=== PATIENT | male | born 1995 | race Caucasian/White ===

== ENCOUNTER → 2024-12-21 | Outpatient (CLI) | payer MEDICAID, SELFPAY ==
[2024-12-21 11:29] LABS: Absolute Lymphocyte Count 2.21 X10^3/uL (0.83-4.51); Absolute Neutrophil Count 4.1 X10^3/uL (2.0-7.7); Basophil# 0.02 X10^3/uL; Basophil% 0.3 % (0-1); Eosinophil# 0.19 X10^3/uL; Eosinophils% 2.7 % (0-5); Hematocrit 42.8 % (40-54); Lymphocyte # 2.21 X10^3/ul (0.83-4.51); Lymphocyte % 31.4 % (19-41); Mean Corp Hgb Conc 32.7 g/dL (32-36); Mean Corpuscular Hgb 26.5 pg (27.0-32.0); Mean Corpuscular Volume 81.1 fL (80-94); Monocyte% 7.1 % (0-10); NRBC Flagged by Analyzer 0 % (0-5); Neutrophil # 4.09 X10^3/uL (2.7-7.7); Neutrophil % 58.2 % (47-70); Platelet Count 243 K/mm3 (150-450); RBC Distribution Width SD 38.3 fl (35.1-43.9); Red Blood Count 5.28 M/mm3 (4.6-6.2)
[2024-12-21 12:10] LABS: ALB/GLOB Ratio 1.6 RATIO (0.9-2.4); AST(SGOT) 31 U/L (<=37); Alanine Aminotransfer ALT/SGPT 51 U/L (<=46); Albumin, Serum 4.7 g/dL (3.5-5.0); Alkaline Phosphatase 110 U/L (40-129); Amylase 62 U/L (28-100); Anion Gap 12 (5-15); BUN 22 mg/dL (4-19); BUN/Creat Ratio 14.2 RATIO (10-20); Calcium,Total 9.6 mg/dL (7.6-11.0); Carbon Dioxide 24.5 mmol/L (21.0-32.0); Chloride 102 mmol/L (98-108); Creatinine, Serum 1.56 mg/dL (0.70-1.20); EST Glomerular Filtration Rate 61 (>60); Globulin 2.9 g/dL (2.2-4.2); Glucose 99 mg/dL (70-99); Lipase 20 U/L (13-75); Potassium 4.1 mmol/L (3.3-5.1); Protein, Total 7.6 g/dL (5.9-8.4); Sodium Level 139 mmol/L (133-145); Total Bilirubin 0.36 mg/dL (0.00-1.30)
== END | disposition home or self-care (01) ==
PROVIDERS: PCP Nurse Practitioner Family; Referring Provider Nurse Practitioner Family; Visit Provider Nurse Practitioner Family
DX: R10.9 Unspecified abdominal pain (principal)
CPT/HCPCS: 36415; 80053; 82150; 83690; 85025

== ENCOUNTER 2025-01-25 06:57 | Emergency (ER) | payer MEDICAID, SELFPAY ==
[2025-01-25 06:57] VITALS: BP 145/90; PULSE 89; RESP 16; TEMP 36.7; O2SAT 98; BMI 32.0
--- NOTE | 2025-01-25 07:27 | ED.RN ---
Pt rang into the department. Pt escorted back to the room by CALL CENTER COORDINATOR. Staff walking through the hallways and laughing. Pt yelling Be Professional! numerous times. This nurse into triage pt. Pt began to make numerous statements about how people need to be professional, how he needs answers to his issues, how everyone in town knows his name and being very rude to this nurse. This nurse attempted to explain how this nurse has no idea who pt is and all pts are to be treated the same and how pt is to treat staff. Pt explaining to this nurse that he needs answers and does not want an EGD like the gastro doc states he needs. This nurse attempted to explain that the ER is for ruling out major/life threatening issues and that EGDs are not done in the ER. Pt stating numerous times he wants to be treated with respect and people to be honest with him. This nurse explained numerous times that the Doc would be in and would decide what could be done. BerthaRN at bedside during interaction and HRO outside the room.
--- NOTE | 2025-01-25 07:37 | CT_ITS ---
PROCEDURE: ABDOMEN/PELVIS W IV CONT ONLY 01/25/2025 REASON FOR EXAM: DIFFUSE ABD PAIN History of gastroesophageal reflux. TECHNIQUE: ABDOMEN/PELVIS W IV CONT ONLY Coronal and Sagittal reconstruction series were provided. CONTRAST: Isovue-300 VOLUME: 100 mL One or more dose reduction techniques were used (e.g., Automated exposure control, adjustment of the mA and/or kV according to patient size, use of iterative reconstruction technique. RADIATION DOSE SUMMARY: CTDlvol: 15.8 mGy DLP: 1063.79 mGycm COMPARISON: None FINDINGS: Lung bases: Lung bases are clear. No coronary artery calcification. Liver: Normal size. No mass. Gallbladder: Unremarkable Spleen: Normal size. Pancreas: Normal size without evidence of mass surrounding inflammation or ductal dilation. Adrenals: Unremarkable Kidneys: Normal renal sizes. No hydronephrosis. Bladder: Unremarkable Bowel: Unremarkable Appendix: Unremarkable Lymph nodes: Unremarkable Vasculature: Unremarkable Peritoneum / Retroperitoneum: Small bilateral inguinal hernias containing fat slightly more prominent on the right side. Bones: Unremarkable CT/Abdomen/Pelvis W IV Cont ONLY IMPRESSION: UNREMARKABLE CONTRAST-ENHANCED CT OF THE ABDOMEN AND PELVIS Reading Location: [id number]
--- NOTE | 2025-01-25 07:37 | ED.VIS.GI ---
HPI HPI - GI History of Present Illness Chief Complaint: Abd Pain Informant: patient Narrative Narrative: 29-year-old male frustrated about abdominal pain that is periumbilical/epigastric and has been there for a while. He saw GI about this he has been on the PPI, certain foods especially sauces make it worse. Now he is getting bloated. He has small loose stools often. He denies any blood in the stool or melena. He has had no systemic symptoms such as fevers or lightheadedness or weakness. He has had no nausea or vomiting. GI recommended an EGD but he states he has a fear of being put to sleep so he declined. [facility] Medical History GERD (gastroesophageal reflux disease) Home Medications ?Medication ?Instructions ?Recorded ?Last Taken ?Type omeprazole 40 mg capsule,delayed 40 mg PO BID #90 caps 12/27/24 Unknown Rx release sucralfate 1 gram tablet 1 g PO QAC 12/27/24 Unknown History dicyclomine 20 mg tablet 20 mg PO Q6H PRN PRN abdominal 01/25/25 Unknown Rx discomfort #20 tabs Allergy/AdvReac Type Severity Reaction Status Date / Time No Known Allergies Allergy Verified 01/25/25 07:50 Social History Smoking Status: Former smoker ROS ROS ED Constitutional Constitutional ED: Denies chills or fever(s) Eyes Eyes: Denies change in vision or diplopia ENT ENT ED: Denies rhinorrhea or sore throat Cardiovascular Cardiovascular: Denies chest pain or palpitations Respiratory/Chest Respiratory/Chest: Denies cough or dyspnea Gastrointestinal Gastrointestinal: Reports abdominal pain, bloating and diarrhea; Denies melena, nausea or vomiting Genitourinary Genitourinary ED: Denies dysuria or hematuria Musculoskeletal Musculoskeletal: Denies back pain or neck pain Integumentary Denies abscess or rash Neurologic Neurologic: Denies headache(s), paresthesias or weakness Psychiatric Psychiatric: Denies anxiety or suicidal thoughts EXAM Physical Exam Const Vital Signs: 01/25/25 06:57 Temperature 98.1 F Temperature Source Oral Pulse Rate 89 Respiratory Rate 16 Blood Pressure 145/90 H Blood Pressure Mean 108 Pulse Ox 98 Oxygen Delivery Method Room Air Positive well nourished and well developed General Appearance ED: well developed and NAD HEENT Reports moist mucous membranes normocephalic and atraumatic Eyes PERRL and EOMs intact bilaterally Neck full ROM and supple Resp normal respiratory effort and clear to auscultation bilaterally Cardio regular rate, regular rhythm and no murmurs GI non-tender and non-distended Auscultation: normoactive bowel sounds Palpation: soft Back/Spine no CVA tenderness General Back: other FROM Extremity normal to inspection General Extremety ED: Negative for edema, pulses abnormal or tenderness General Extremity: Negative for edema or pulses abnormal Neuro oriented x3, CN's II-XII intact bilaterally and no sensory deficits noted Sensorium / Orientation: awake and alert Motor Exam: strength 5/5 throughout Skin no rashes or lesions noted and no wounds MDM MDM MDM Narrative Medical decision making narrative: Labs were performed in addition to CT abdomen/pelvis with IV contrast. On my interpretation the CT is normal, radiology was in agreement no acute abnormalities. His labs are normal with no leukocytosis. As I discussed with the patient, this does not mean nothing is wrong, but he could have an intraluminal or a functional etiology of his discomfort and bloating, and if GI thought an EGD was indicated, I recommend that he follow-up with them and reconsider. We did discuss the fact that deep sedation in the OR is different than light sedation for endoscopy and he did not realize that. He was given GI cocktail and dicyclomine here and he states that it really helps him going to prescribe him some dicyclomine to use as needed. We discussed possibilities such as H. pylori/peptic ulcer disease, celiac disease, irritable bowel syndrome, leaky gut syndrome to name a few possibilities. History & Record Review Additional record(s) reviewed:: Prior outpatient record (GI visit end of Nov, 2024) Lab Data Attestation: I reviewed the patient's lab results. Labs: Laboratory Results - last 24 hr 01/25/25 07:52 WBC 7.3 RBC 5.15 Hgb 13.6 Hct 40.4 MCV 78.4 L MCH 26.4 L MCHC 33.7 RDW Std Deviation 37.1 RDW Coeff of Aimee 13.0 Plt Count 213 MPV 9.8 Immature Gran % (Auto) 0.300 Neut % (Auto) 60.6 Lymph % (Auto) 28.9 [place] % (Auto) 6.8 Eos % (Auto) 3.1 Baso % (Auto) 0.3 Absolute Neuts (auto) 4.5 Absolute Lymphs (auto) 2.12 Nucleated RBC % 0 Sodium 137 Potassium 3.8 Chloride 101 Carbon Dioxide 23.7 Anion Gap 12 BUN 20 H Creatinine 0.82 Estim Creat Clear Calc 130.48 Est GFR (MDRD) Non-Af 122 BUN/Creatinine Ratio 24.8 H Glucose 95 Calcium 9.8 Total Bilirubin 0.44 AST 25 ALT 35 Alkaline Phosphatase 108 Total Protein 7.3 Albumin 4.5 Globulin 2.8 Albumin/Globulin Ratio 1.6 Lipase 21 Radiography Diagnostic Testing: Clinical Impression(s) from Imaging Studies Abdomen/Pelvis CT 01/25/25 07:37 IMPRESSION: UNREMARKABLE CONTRAST-ENHANCED CT OF THE ABDOMEN AND PELVIS Reading Location: [facility] Discharge Plan Triage Chief Complaint: Abd Pain ED Provider: Guillermo Morgan Dx/Rx/DC Orders Clinical Impression: Diffuse abdominal pain, Intermittent diarrhea, Abdominal bloating Instructions: Abdominal Pain Prescriptions: New dicyclomine 20 mg tablet 20 mg PO Q6H PRN PRN (Reason: abdominal discomfort) Qty: 20 0RF Continued sucralfate 1 gram tablet 1 g PO QAC omeprazole 40 mg capsule,delayed release(DR/EC) 40 mg PO BID Qty: 90 2RF Discontinued pantoprazole 20 mg tablet,delayed release (DR/EC) 20 mg PO QDAY Primary Care Provider: Alecia Sol Referrals: Nalini Del Rio PA [Med Staff - Adv Practice Prof] - Print Language: Korean Disposition Disposition: Home, Self Care
--- OUTSIDE RECORDS SUMMARY | 2025-01-25 07:47 | XMS RPT_ITS | CCD ---
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 mcg/mL (12 hours post dose) Result Comment: Urin e Buprenorphine Cutoff: < 5 ng/mL = None Detected Performed By: #### 4 5014 #### [facility] [address] [id number] Wilbert Johnson M.D. [id number] CANNABINOID SCREEN URINE Not detected Normal Non e Detected [facility] Comment on above: Order Comment: Thera peutic Range: 10-30 mcg/mL Potentially Toxic: >200 mcg/mL (4 hours post dose) >100 mcg/mL (8 hours post dose) >50 mcg/mL (12 hours post dose) Result Comment: Urin e Cannabinoids Cutoff: < 50 ng/mL = None Detected Performed By: #### 4 5014 #### [facility] [address] [id number] Wilbert Johnson M.D. [id number] COCAINE, SCREEN URINE Not detected Normal None Detected [facility] Comment on above: Order Comment: Thera peutic Range: 10-30 mcg/mL Potentially Toxic: >200 mcg/mL (4 hours post dose) >100 mcg/mL (8 hours post dose) >50 mcg/mL (12 hours post dose) Result Comment: Urin e Cocaine Cutoff: < 300 ng/mL = None Detected Performed By: #### 4 5014 #### [facility] [address] [address] Wilbert Johnson M.D. [id number] FENTANYL, URINE Not detected Normal None Detected [facility] Comment on above: Order Comment: Thera peutic Range: 10-30 mcg/mL Potentially Toxic: >200 mcg/mL (4 hours post dose) >100 mcg/mL (8 hours post dose) >50 mcg/mL (12 hours post dose) Result Comment: Urin e Fentanyl Cutoff: < 1 ng/mL = None Detected Performed By: #### 4 5014 #### [facility] [address] [address] Wilbert Johnson M.D. [id number] METHADONE SCREEN, URINE Not detected Normal None Detected [facility] Comment on above: Order Comment: Thera peutic Range: 10-30 mcg/mL Potentially Toxic: >200 mcg/mL (4 hours post dose) >100 mcg/mL (8 hours post dose) >50 mcg/mL (12 hours post dose) Result Comment: Urin e Methadone Cutoff: < 300 ng/mL = None Detected Performed By: #### 4 5014 #### [facility] [address] [address] Wilbert Johnson M.D. [id number] OPIATE SCREEN URINE Not detected Normal None Detected [facility] Comment on above: Order Comment: Thera peutic Range: 10-30 mcg/mL Potentially Toxic: >200 mcg/mL (4 hours post dose) >100 mcg/mL (8 hours post dose) >50 mcg/mL (12 hours post dose) Result Comment: Urin e Opiates Cutoff: < 300 ng/mL = None Detected Performed By: #### 4 5014 #### [facility] [address] [id number] Wilbert Johnson M.D. [id number] OXYCODONE SCREEN, URINE Not detected Normal None Detected [facility] Comment on above: Order Comment: Thera peutic Range: 10-30 mcg/mL Potentially Toxic: >200 mcg/mL (4 hours post dose) >100 mcg/mL (8 hours post dose) >50 mcg/mL (12 hours post dose) Result Comment: Urin e Oxycodone Cutoff: < 100 ng/mL = None Detected Performed By: #### 4 5014 #### [facility] [address], [place] [address] Wilbert Johnson M.D. [id number] ED Prov Noteon 08-31-2024 ED Prov Note ED PROVIDER NOTE [facility] EMERGENCY DEPARTMENT Patient Name: Cory Shelley Age: 28 y.o. : 1995 ED Visit Date : 08/31/24 Chief Complaint Patient presents with Suicidal HPI/MDM: Patient is a 28-year-old male with history of depression and PTSD presenting for suicidal ideation. Patient states today he started feeling suicidal with plan of taking all of his pills. He states he has only taking his recommended pills today and has not taken anything extra. He states he is also staying outside and sleeping on the ground. He denies any HI, AVH, alcohol or drug use. On exam, he is alert and oriented, disheveled and visibly dirty but cooperative with exam. Vital signs are stable. He denies any physical complaints at this time. He was placed on a medical hold for suicidal ideation and PSS was consulted. Disposition pending their evaluation. Impressions: 1. Suicidal ideation MDM Data Previous Records Reviewed The patient has been informed that they may have pre-hypertension or hypertension based on a blood pressure reading in the Emergency Department. I recommend that the patient call the primary care provider listed on their discharge instructions or a physician of their choice as soon as possible to arrange follow-up in the next 4 weeks for further evaluation of possible pre-hypertension or hypertension. . Labs Reviewed URINALYSIS - Abnormal; Notable for the following components: Result Value Ketones, Urine >=80 (*) Bacteria, Urine Rare (*) Hyaline Casts 3-5 (*) All other components within normal limits Narrative: Microscopic examination is performed on all urinalysis samples and only positive findings are reported. The test for blood on the chemical analytic portion of urinalysis may also be positive due to hemoglobinuria and myoglobinuria and if red blood cells are present they are quantified by microscopic examination. ALCOHOL, MEDICAL - Normal SALICYLATE LEVEL - Normal Narrative: Therapeutic Range: 10-20 mg/dL Potentially Toxic: >30 mg/dL ACETAMINOPHEN LEVEL - Normal Narrative: Therapeutic Range: 10-30 mcg/mL Potentially Toxic: >200 mcg/mL (4 hours post dose) >100 mcg/mL (8 hours post dose) >50 mcg/mL (12 hours post dose) DRUGS OF ABUSE SCREEN, URINE Radiographic Imaging (if any) During ED Visit No orders to display Medications Ordered/Given During ED Visit Medications - No data to display I saw and evaluated the patient. I have reviewed the chief complaint, triage note, past medical/surgical, family, and social history. END OF MEDICAL DECISION MAKING Physical Exam Initial Vital Signs BP (!) 148/92 (BP Location: Right arm, Patient Position: Sitting) Pulse (!) 114 Temp 99.4 degrees F (37.4 degrees C) (Oral) Resp 17 Ht 5' 4 Wt 68 kg (150 lb) SpO2 98% BMI 25.75 kg/m Vital Signs During ED Visit (as charted by nursing) Patient Vitals for the past 24 hrs: BP Temp Temp src Pulse Resp SpO2 Height Weight 08/31/24 2209 (!) 148/92 99.4 degrees F (37.4 degrees C) Oral (!) 114 17 98 % -- -- 08/31/24 1932 (!) 139/96 98.1 degrees F (36.7 degrees C) Oral (!) 100 (!) 20 99 % 5' 4 68 kg (150 lb) Physical Exam Constitutional: General: He is not in acute distress. Appearance: He is not ill-appearing or diaphoretic. HENT: Head: Normocephalic and atraumatic. Nose: Nose normal. Mouth/Throat: Mouth: Mucous membranes are moist. Eyes: Extraocular Movements: Extraocular movements intact. Conjunctiva/sclera: Conjunctivae normal. Cardiovascular: Rate and Rhythm: Normal rate. Pulses: Normal pulses. Musculoskeletal: General: Normal range of motion. Cervical back: Normal range of motion. Right lower leg: No edema. Left lower leg: No edema. Pulmonary: Effort: Pulmonary effort is normal. No respiratory distress. Abdominal: General: Abdomen is flat. Skin: General: Skin is warm and dry. Neurological: General: No focal deficit present. Mental Status: He is alert and oriented to person, place, and time. Sensory: No sensory deficit. Motor: No weakness. Psychiatric: Mood and Affect: Mood normal. Behavior: Behavior normal. Procedures Review of Systems As described above or not pertinent to present emergent encounter. All other systems reviewed and negative. Past Medical History Past Medical History: Diagnosis Date Depression Past Surgical History History reviewed. No pertinent surgical history. Family History History reviewed. No pertinent family history. Social History Social History Socioeconomic History Marital status: Single Tobacco Use Smoking status: Some Days Types: Cigarettes Smokeless tobacco: Never Vaping Use Vaping status: Never Used Substance and Sexual Activity Alcohol use: Yes Comment: occasionally Drug use: Yes Types: Marijuana Comment: occasionally Anthony (more content not included)... Normal [facility] SALICYLATE LEVELon SALICYLATE < Normal 0.0-20.0 [facility] Comment on above: Order Comment: Thera peutic Range: 10-20 mg/dL Potentially Toxic: >30 mg/dL Performed By: #### 4 [id number] #### [facility] [address], [place] [address] Wilbert Johnson M.D. [id number] URINALYSISon 08-31-2024 BACTERIA, URINE Rare Abnormal None Seen [facility] Comment on above: Order Comment: Thera peutic Range: 10-30 mcg/mL Potentially Toxic: >200 mcg/mL (4 hours post dose) >100 mcg/mL (8 hours post dose) >50 mcg/mL (12 hours post dose) Performed By: #### 4 5014 #### [facility] [address], [place] [address] Wilbert Johnson M.D. [id number] BILIRUBIN, URINE Negative Normal Negative [facility] Comment on above: Order Comment: Thera peutic Range: 10-30 mcg/mL Potentially Toxic: >200 mcg/mL (4 hours post dose) >100 mcg/mL (8 hours post dose) >50 mcg/mL (12 hours post dose) Performed By: #### 4 5014 #### [facility] [address] [address] Wilbert Johnson M.D. [id number] BLOOD, URINE Negative Normal Negative [facility] Comment on above: Order Comment: Thera peutic Range: 10-30 mcg/mL Potentially Toxic: >200 mcg/mL (4 hours post dose) >100 mcg/mL (8 hours post dose) >50 mcg/mL (12 hours post dose) Performed By: #### 4 5014 #### [facility] [address] [address] Wilbert Johnson M.D. [id number] Clarity (U) Clear Normal Clear [facility] Comment on above: Order Comment: Thera peutic Range: 10-30 mcg/mL Potentially Toxic: >200 mcg/mL (4 hours post dose) >100 mcg/mL (8 hours post dose) >50 mcg/mL (12 hours post dose) Performed By: #### 4 5014 #### [facility] [address] [address] Wilbert Johnson M.D. [id number] Color (U) Yellow Normal Colorless, Yellow [facility] Comment on above: Order Comment: Thera peutic Range: 10-30 mcg/mL Potentially Toxic: >200 mcg/mL (4 hours post dose) >100 mcg/mL (8 hours post dose) >50 mcg/mL (12 hours post dose) Performed By: #### 4 5014 #### [facility] [address] [address] Wilbert Johnson M.D. [id number] Glucose Ql (U) Negative Normal Negative, >=1000 [facility] Comment on above: Order Comment: Thera peutic Range: 10-30 mcg/mL Potentially Toxic: >200 mcg/mL (4 hours post dose) >100 mcg/mL (8 hours post dose) >50 mcg/mL (12 hours post dose) Performed By: #### 4 5014 #### [facility] [address], [place] [address] Wilbert Johnson M.D. [id number] Hyaline casts LM Ql (Urine sed) 3-5 Abnormal 0-2 [facility] Comment on above: Order Comment: Thera peutic Range: 10-30 mcg/mL Potentially Toxic: >200 mcg/mL (4 hours post dose) >100 mcg/mL (8 hours post dose) >50 mcg/mL (12 hours post dose) Performed By: #### 4 5014 #### [facility] [address] [id number] Wilbert Johnson M.D. [id number] Ketones Ql (U) >=80 Abnormal Negative [facility] Comment on above: Order Comment: Thera peutic Range: 10-30 mcg/mL Potentially Toxic: >200 mcg/mL (4 hours post dose) >100 mcg/mL (8 hours post dose) >50 mcg/mL (12 hours post dose) Performed By: #### 4 5014 #### [facility] [address] [id number] Wilbert Johnson M.D. [id number] Leukocyte esterase Test strip Ql (U) Negative Normal Negative [facility] Comment on above: Order Comment: Thera peutic Range: 10-30 mcg/mL Potentially Toxic: >200 mcg/mL (4 hours post dose) >100 mcg/mL (8 hours post dose) >50 mcg/mL (12 hours post dose) Performed By: #### 4 5014 #### [facility] [address] [id number] Wilbert Johnson M.D. [id number] MUCUS, URINE Rare Normal None Seen, [place] [facility] Comment on above: Order Comment: Thera peutic Range: 10-30 mcg/mL Potentially Toxic: >200 mcg/mL (4 hours post dose) >100 mcg/mL (8 hours post dose) >50 mcg/mL (12 hours post dose) Performed By: #### 4 [id number] #### [facility] [address] [id number] Wilbert Johnson M.D. [id number] NITRITE, URINE Negative Normal Negative [facility] Comment on above: Order Comment: Thera peutic Range: 10-30 mcg/mL Potentially Toxic: >200 mcg/mL (4 hours post dose) >100 mcg/mL (8 hours post dose) >50 mcg/mL (12 hours post dose) Performed By: #### 4 [id number] #### [facility] [address], [place] [address] Wilbert Johnson M.D. [id number] pH (U) 5.5 [pH] Normal 5.0-7.0 [facility] Comment on above: Order Comment: Thera peutic Range: 10-30 mcg/mL Potentially Toxic: >200 mcg/mL (4 hours post dose) >100 mcg/mL (8 hours post dose) >50 mcg/mL (12 hours post dose) Performed By: #### 4 [id number] #### [facility] [address] [id number] Wilbert Johnson M.D. [id number] PROTEIN, URINE Negative Normal Negative [facility] Comment on above: Order Comment: Thera peutic Range: 10-30 mcg/mL Potentially Toxic: >200 mcg/mL (4 hours post dose) >100 mcg/mL (8 hours post dose) >50 mcg/mL (12 hours post dose) Performed By: #### 4 [id number] #### [facility] [address], [place] [address] Wilbert Johnson M.D. [id number] RBC LM.HPF (Urine sed) [#/Area] 1 /[HPF] Normal 0-3 [facility] Comment on above: Order Comment: Thera peutic Range: 10-30 mcg/mL Potentially Toxic: >200 mcg/mL (4 hours post dose) >100 mcg/mL (8 hours post dose) >50 mcg/mL (12 hours post dose) Performed By: #### 4 [id number] #### [facility] [address], [place] [address] Wilbert Johnson M.D. [id number] Specific gravity (U) [Rel density] 1.023 Normal 1.005-1.025 [facility] Comment on above: Order Comment: Thera peutic Range: 10-30 mcg/mL Potentially Toxic: >200 mcg/mL (4 hours post dose) >100 mcg/mL (8 hours post dose) >50 mcg/mL (12 hours post dose) Performed By: #### 4 [id number] #### [facility] [address], [place] [address] Wilbert Johnson M.D. [id number] UROBILINOGEN, URINE <2.0 Normal <2.0 [facility] Comment on above: Order Comment: Thera peutic Range: 10-30 mcg/mL Potentially Toxic: >200 mcg/mL (4 hours post dose) >100 mcg/mL (8 hours post dose) >50 mcg/mL (12 hours post dose) Performed By: #### 4 [id number] #### [facility] [address], [place] [address] Wilbert Johnson M.D. [id number] WBC LM.HPF (Urine sed) [#/Area] 2 /[HPF] Normal 0-5 [facility] Comment on above: Order Comment: Thera peutic Range: 10-30 mcg/mL Potentially Toxic: >200 mcg/mL (4 hours post dose) >100 mcg/mL (8 hours post dose) >50 mcg/mL (12 hours post dose) Performed By: #### 4 [id number] #### [facility] [address], [place] [address] Wilbert Johnson M.D. [id number] ALCOHOL (ETHANOL),BLOODon Ethanol Ql (Bld) mg/dL NINF - 10 mg/dL [facility] Interpretation and review of laboratory results Normal [facility] Alcohol, Serum <10 Normal <[address] [facility] Comment on above: Performed By: #### A LCOSU #### [facility] (DEFAULT) [address] [place] [address] CALCIUMon 08-19-2024 Calcium [Mass/Vol] 9.3 mg/dL 8.6 - 10. 5 mg/dL [facility] CBC,PLATELETSon 08-19-2024 Erythrocyte distribution width (RBC) [Ratio] 13.2 % 10.9 - 14.3 % [facility] Hematocrit (Bld) [Volume fraction] 42.2 % 39.6 - 48.8 % [facility] Hemoglobin (Bld) [Mass/Vol] 14.4 g/dL 13.4 - 16.8 g/dL [facility] Interpretation and review of laboratory results Abnormal [facility] MCH (RBC) [Entitic mass] 26.9 pg 26. 1 - 33.3 pg [facility] MCHC (RBC) [Mass/Vol] 34.1 g/dL 31.9 - 36.5 g/dL [facility] MCV (RBC) [Entitic vol] 78.7 fL Low 79.0 - 94.5 fL [facility] Platelet mean volume (Bld) [Entitic vol] 10.5 fL 8.7 - 12.3 fL [facility] Platelets (Bld) [#/Vol] 159 10*3/uL 146 - 337 K/uL [facility] RBC (Bld) [#/Vol] 5.36 10*6/uL [facility] WBC (Bld) [#/Vol] 6.75 10*3/uL 3.73 - 10. 10 K/uL [facility] 7 - EDon 08-19-2024 Anion gap [Moles/Vol] 12 mmol/L 7 - 17 mmol/L [facility] Chloride [Moles/Vol] 103 mmol/L 98 - 10 8 mmol/L [facility] CO2 [Moles/Vol] 28 mmol/L 21 - 31 mmol/L [facility] Creatinine [Mass/Vol] 0.95 mg/dL 0.70 - 1.30 mg/dL [facility] eGFR, CKD-EPI, Male - PINF [facility] Comment on above: Reported eGFR is bas ed on the CKD-EPI 2020 equation using creatinine, age, and sex. Glucose [Mass/Vol] 96 mg/dL 70 - 99 mg/dL [facility] Osmolality Calc [Osmolality] 292 [facility] Potassium [Moles/Vol] 4.2 mmol/L 3.5 - 5.0 mmol/L [facility] Sodium [Moles/Vol] 139 mmol/L 135 - 145 mmol/L [facility] Urea nitrogen [Mass/Vol] 16 mg/dL 7 - 25 mg/d L [facility] Urea nitrogen/Creatinine [Mass ratio] 17 mg/mg [facility] HEPATIC FUNCTION PANELon Albumin [Mass/Vol] 4.6 g/dL 3.5 - 5.0 g/dL [facility] ALP [Catalytic activity/Vol] 104 U/L 32 - 126 U/L [facility] ALT [Catalytic activity/Vol] 25 U/L 10 - 52 U/L [facility] AST [Catalytic activity/Vol] 19 U/L 10 - 39 U/L [facility] Bilirubin [Mass/Vol] 0.5 mg/dL NINF - 1.5 mg/dL [facility] Bilirubin.direct [Mass/Vol] 0.1 mg/dL NINF - 0.3 mg/dL [facility] Protein [Mass/Vol] 7.3 g/dL 6.4 - 8.3 g/dL [facility] LIPASEon 08-19-2024 Lipase [Catalytic activity/Vol] 11 U/L 11 - 82 U/L [facility] MAGNESIUMon 08-19-2024 Magnesium [Mass/Vol] 2.4 mg/dL 1.6 - 2 .6 mg/dL [facility] No Panel Informationon 08-19 [facility] Interpretation and review of laboratory results Normal [facility] PHOSPHATE, INORGANICon 08-19 Interpretation and review of laboratory results Abnormal [facility] Phosphate [Mass/Vol] 5.1 mg/dL High 2.2 - 4 .6 mg/dL [facility] CALCIUMon 08-18-2024 Calcium [Mass/Vol] 9.3 mg/dL Normal 8.6-10.5 [facility] Comment on above: Performed By: #### L IPA, IPB, MGO, HFP, CA, C7ED #### [facility] (DEFAULT) [address] [place] [id number] CBC,PLATELETSon 08-18-2024 Hematocrit (Bld) [Volume fraction] 42.2 % Normal 39.6-48.[address] [facility] Comment on above: Performed By: #### H EMOGC #### [facility] (DEFAULT) [address] [place] [address] Hemoglobin (Bld) [Mass/Vol] 14.4 g/dL Normal 13.4-16.[address] [facility] Comment on above: Performed By: #### H EMOGC #### [facility] (DEFAULT) [address] [place] [address] MCV (RBC) [Entitic vol] 78.7 fL Low 79.0-94.[address] [facility] Comment on above: Performed By: #### H EMOGC #### [facility] (DEFAULT) [address] [place] [address]97 Mean Cell Hgb 26.9 pg Normal 26.1-33.[address] [facility] Comment on above: Performed By: #### H EMOGC #### [facility] (DEFAULT) [address] [place] [address] 75872 Mean Cell Hgb Conc 34.1 g/dL Normal 31.9-36.5 [facility] Comment on above: Performed By: #### H EMOGC #### [facility] (DEFAULT) [address] [place] [address] Platelet mean volume (Bld) [Entitic vol] 10.5 fL Normal 8.7-12.[address] [facility] Comment on above: Performed By: #### H EMOGC #### [facility] (DEFAULT) [address] [place] [address] Platelets (Bld) [#/Vol] 159 10*3/uL Normal 146-[address] [facility] Comment on above: Performed By: #### H EMOGC #### [facility] (DEFAULT) [address] [place] [address] RBC (Bld) [#/Vol] 5.36 10*6/uL Normal 4.38-5.[address] [facility] Comment on above: Performed By: #### H EMOGC #### [facility] (DEFAULT) [address] [place] [address] RBC Distribution 13.2 % Normal 10.9-14.3 [facility] Comment on above: Performed By: #### H EMOGC #### [facility] (DEFAULT) [address] [place] [address] WBC (Bld) [#/Vol] 6.75 10*3/uL Normal 3.73-10.[address] [facility] Comment on above: Performed By: #### H EMOGC #### [facility] (DEFAULT) [address] [place] [address] CHM 7 - EDon 08-18-2024 Anion gap [Moles/Vol] 12 mmol/L Normal 7-17 [facility] Comment on above: Performed By: #### C HM7, HFP, HDLT #### [facility] (DEFAULT) [address] [place] [address] Chloride [Moles/Vol] 103 mmol/L Normal 98-[address] [facility] Comment on above: Performed By: #### C HM7, HFP, HDLT #### [facility] (DEFAULT) [address] [place] [address] CO2 [Moles/Vol] 28 mmol/L Normal 21-31 [facility] Comment on above: Performed By: #### C HM7, HFP, HDLT #### [facility] (DEFAULT) [address] [place] [address] Creatinine [Mass/Vol] 0.95 mg/dL Normal 0.70-1.30 [facility] Comment on above: Performed By: #### C HM7, HFP, HDLT #### [facility] (DEFAULT) [address] [place] [address] eGFR, CKD-EPI, Male > Normal >=[address] [facility] Comment on above: Result Comment: Repo rted eGFR is based on the CKD-EPI 2020 equation using creatinine, age, and sex. Performed By: #### C HM7, HFP, HDLT #### [facility] (DEFAULT) [address] [place] [address]24 Glucose [Mass/Vol] 96 mg/dL Normal 70-99 [facility] Comment on above: Performed By: #### C HM7, HFP, HDLT #### [facility] (DEFAULT) [address] [place] [address] Osmolality [Osmolality] 292 mosm/kg Normal 278-[address] [facility] Comment on above: Performed By: #### C HM7, HFP, HDLT #### [facility] (DEFAULT) [address] [place] [address]706 Potassium [Moles/Vol] 4.2 mmol/L Normal 3.5-5.0 [facility] Comment on above: Performed By: #### C HM7, HFP, HDLT #### [facility] (DEFAULT) [address] [place] [address] 09755 Sodium [Moles/Vol] 139 mmol/L Normal 135-145 [facility] Comment on above: Performed By: #### C HM7, HFP, HDLT #### [facility] (DEFAULT) [address] [place] [address]1417 Urea nitrogen [Mass/Vol] 16 mg/dL Normal 7-[address] [facility] Comment on above: Performed By: #### C HM7, HFP, HDLT #### [facility] (DEFAULT) [address] [place] [address] Urea nitrogen/Creatinine [Mass ratio] 17 mg/mg Normal [facility] Comment on above: Performed By: #### C HM7, HFP, HDLT #### [facility] (DEFAULT) [address] [place] [address]951 HEPATIC FUNCTION PANELon Albumin [Mass/Vol] 4.6 g/dL Normal 3.5-5.0 [facility] Comment on above: Performed By: #### C HM7, HFP, HDLT #### [facility] (DEFAULT) [address] [place] [address]3083 ALP [Catalytic activity/Vol] 104 U/L Normal 32-[address] [facility] Comment on above: Performed By: #### C HM7, HFP, HDLT #### [facility] (DEFAULT) [address] [place] [address] 70777 ALT [Catalytic activity/Vol] 25 U/L Normal 10-[address] [facility] Comment on above: Performed By: #### C HM7, HFP, HDLT #### [facility] (DEFAULT) [address] [place] [address] 20125 AST [Catalytic activity/Vol] 19 U/L Normal 10-[address] [facility] Comment on above: Performed By: #### C HM7, HFP, HDLT #### [facility] (DEFAULT) [address] [place] [address] 44906 Bilirubin [Mass/Vol] 0.5 mg/dL Normal <1.[address] [facility] Comment on above: Performed By: #### C HM7, HFP, HDLT #### [facility] (DEFAULT) [address] [place] [address] 12037 Bilirubin.indirect [Mass/Vol] 0.1 mg/dL Normal <0.[address] [facility] Comment on above: Performed By: #### C HM7, HFP, HDLT #### [facility] (DEFAULT) [address] [place] [address] 06707 Protein [Mass/Vol] 7.3 g/dL Normal 6.4-8.3 [facility] Comment on above: Performed By: #### C HM7, HFP, HDLT #### [facility] (DEFAULT) [address] [place] [address] 87883 LIPASEon 08-18-2024 Lipase [Catalytic activity/Vol] 11 U/L Normal 11-[address] [facility] Comment on above: Performed By: #### L IPA, IPB, MGO, HFP, CA, C7ED #### [facility] (DEFAULT) [address] [place] [address] 85307 MAGNESIUMon 08-18-2024 Magnesium [Mass/Vol] 2.4 mg/dL Normal 1.6-2.[address] [facility] Comment on above: Performed By: #### L IPA, IPB, MGO, HFP, CA, C7ED #### [facility] (DEFAULT) [address] [place] [address] 90022 PHOSPHATE, INORGANICon 08-18 Phosphorous 5.1 mg/dL High 2.2-4.[address] [facility] Comment on above: Performed By: #### C HM7, HFP, HDLT #### [facility] (DEFAULT) [address] [place] [address] 10508 ALCOHOL, MEDICALon ALCOHOL MEDICAL < Normal <10.0 [facility] Comment on above: Result Comment: Alco hol cutoff: <10.00 mg/dL = None Detected Performed By: #### 4 [id number] #### [facility] [address] [address] Wilbert Johnson M.D. [id number] COVID-19, MOLECULARon 2023 SARS-CoV-2 (COVID-19) RNA CLAUDIA+probe Ql (Unsp spec) Not detected Normal Not Detected [facility] Comment on above: Performed By: #### L [id number] #### [facility] [address], [place] [address] Wilbert Johnson M.D. [id number] DRUGS OF ABUSE SCREEN, URINE on 06-06-2024 AMPHETAMINE SCREEN, URINE Not detected Normal None Detected [facility] Comment on above: Order Comment: Scree n results should be used for treatment purposes only. Result Comment: Urin e Amphetamine Cutoff: < 1000 ng/mL = None Detected Performed By: #### 4 [id number] #### [facility] [address] [address] Wilbert Johnson M.D. [id number] BARBITURATE SCREEN URINE Not detected Normal Non e Detected [facility] Comment on above: Order Comment: Scree n results should be used for treatment purposes only. Result Comment: Urin e Barbiturates Cutoff: < 200 ng/mL = None Detected Performed By: #### 4 [id number] #### [facility] [address] [address] Wilbert Johnson M.D. [id number] BENZODIAZEPINE SCREEN, URINE Not detected Normal None Detected [facility] Comment on above: Order Comment: Scree n results should be used for treatment purposes only. Result Comment: Urin e Benzodiazepine Cutoff: < 200 ng/mL = None Detected Performed By: #### 4 [id number] #### [facility] [address] [address] Wilbert Johnson M.D. [id number] BUPRENORPHINE, URINE Not detected Normal None Detected [facility] Comment on above: Order Comment: Scree n results should be used for treatment purposes only. Result Comment: Urin e Buprenorphine Cutoff: < 5 ng/mL = None Detected Performed By: #### 4 [id number] #### [facility] [address] [address] Wilbert Johnson M.D. [id number] CANNABINOID SCREEN URINE Not detected Normal Non e Detected [facility] Comment on above: Order Comment: Scree n results should be used for treatment purposes only. Result Comment: Urin e Cannabinoids Cutoff: < 50 ng/mL = None Detected Performed By: #### 4 [id number] #### [facility] [address] [address] Wilbert Johnson M.D. [id number] COCAINE, SCREEN URINE Not detected Normal None Detected [facility] Comment on above: Order Comment: Scree n results should be used for treatment purposes only. Result Comment: Urin e Cocaine Cutoff: < 300 ng/mL = None Detected Performed By: #### 4 [id number] #### [facility] [address] [address] Wilbert Johnson M.D. [id number] FENTANYL, URINE Not detected Normal None Detected [facility] Comment on above: Order Comment: Scree n results should be used for treatment purposes only. Result Comment: Urin e Fentanyl Cutoff: < 1 ng/mL = None Detected Performed By: #### 4 [id number] #### [facility] [address] [address] Wilbert Johnson M.D. [id number] METHADONE SCREEN, URINE Not detected Normal None Detected [facility] Comment on above: Order Comment: Scree n results should be used for treatment purposes only. Result Comment: Urin e Methadone Cutoff: < 300 ng/mL = None Detected Performed By: #### 4 [id number] #### [facility] [address] [address] Wilbert Johnson M.D. [id number] OPIATE SCREEN URINE Not detected Normal None Detected [facility] Comment on above: Order Comment: Scree n results should be used for treatment purposes only. Result Comment: Urin e Opiates Cutoff: < 300 ng/mL = None Detected Performed By: #### 4 [id number] #### [facility] [address] [id number] Wilbert Johnson M.D. [id number] OXYCODONE SCREEN, URINE Not detected Normal None Detected [facility] Comment on above: Order Comment: Scree n results should be used for treatment purposes only. Result Comment: Urin e Oxycodone Cutoff: < 100 ng/mL = None Detected Performed By: #### 4 [id number] #### [facility] [address] [address] Wilbert Johnson M.D. [id number] ED Prov Noteon 06-06-2024 ED Prov Note T11 :This report has been cancelled. Normal [facility] ED Prov Note PCP - No, Physician Chief Complaint Patient presents with Suicidal HPI/ Medical Decision Making Patient is a 28-year-old male who presents today for suicidal ideation. Patient has history of depression anxiety. Patient states that he has had suicidal ideation that started today. Patient states that he recently lost his job which also resulted in him losing his apartment. Patient states that he does have a plan in which she would strangle himself with his backpack. Patient does note history of cutting. States that he drank about 5 beers last night. Denies any daily alcohol use but does note that he drinks about 1-2 times a week in which she is drinking between 9 PM and 3 AM in which he is binge drinking. Patient denies any daily medications for his depression or anxiety, positive family history, homicidal ideation, visual or auditory hallucinations, recreational drug use, medical complaints including headache, blurry vision, double caused byvision, chest pain, shortness of breath, abdominal pain, hematuria, dysuria, frequency, urgency, constipation, diarrhea. Medical Decision Making Amount and/or Complexity of Data Reviewed External Data Reviewed: labs and notes. Labs: ordered. Decision-making details documented in ED Course. Risk OTC drugs. The patient's medical chart, vital signs and nursing notes were reviewed. Diagnostic considerations during this visit include but are not limited to: Psychosis, suicidal ideation. Work-up in the emergency department included labs. Urine drug screen negative. Alcohol within appropriate range. As needed medications placed. Patient placed on medical hold due to suicidal ideation. Psych consulted. Please see psych's attestation for continued workup, treatment, plan. This patient was seen by myself in conjugation with emergency medicine attending physician, Dr. Rose . I discussed this patient including his/her history, physical exam, laboratory findings, and imaging with the attending physician who is in agreement with this plan. Impressions: 1. Suicidal ideation MDM Data MDM Data: External Documents/Labs Reviewed, Discussed with consultants/staff, and Shared decision making utilized Previous Records Reviewed The patient has been informed that they may have pre-hypertension or hypertension based on a blood pressure reading in the Emergency Department. I recommend that the patient call the primary care provider listed on their discharge instructions or a physician of their choice as soon as possible to arrange follow-up in the next 4 weeks for further evaluation of possible pre-hypertension or hypertension. . Labs Reviewed DRUGS OF ABUSE SCREEN, URINE - Normal Narrative: Screen results should be used for treatment purposes only. ALCOHOL, MEDICAL - Normal Radiographic Imaging (if any) During ED Visit No orders to display Medications Ordered/Given During ED Visit Medications LORazepam (ATIVAN) tablet 1 mg (has no administration in time range) Or LORazepam (ATIVAN) injection 1 mg (has no administration in time range) . I saw and evaluated the patient. I have reviewed the chief complaint, triage note, past medical/surgical, family, and social history. END OF MEDICAL DECISION MAKING Physical Exam Initial Vital Signs BP 132/85 (BP Location: Right arm, Patient Position: Lying) Pulse 72 Temp 98.1 degrees F (36.7 degrees C) (Oral) Resp 18 Ht 5' 4 Wt 68 kg (150 lb) SpO2 97% BMI 25.75 kg/m Vital Signs During ED Visit (as charted by nursing) Patient Vitals for the past 24 hrs: BP Temp Temp src Pulse Resp SpO2 Height Weight 06/06/24 0607 132/85 98.1 degrees F (36.7 degrees C) Oral 72 18 97 % 5' 4 68 kg (150 lb) Physical Exam Vitals and nursing note reviewed. Constitutional: Appearance: Normal appearance. He is not ill-appearing or toxic-appearing. HENT: Head: Normocephalic. Cardiovascular: Rate and Rhythm: Normal rate and regular rhythm. Pulses: Normal pulses. Heart sounds: Normal heart sounds. Pulmonary: Effort: Pulmonary effort is normal. Breath sounds: Normal breath sounds. Abdominal: General: Abdomen is flat. Bowel sounds are normal. Palpations: Abdomen is soft. Tenderness: There is no abdominal tenderness. Skin: General: Skin is warm. Capillary Refill: Capillary refill takes less than 2 seconds. Neurological: General: No focal deficit present. Mental Status: He is alert and oriented to person, place, and time. Mental status is at baseline. Psychiatric: Mood and Affect: Mood normal. Behavior: Behavior normal. Thought Content: Thought content includes suicidal ideation. Thought content includes suicidal plan. Cognition and Memory: Cognition normal. Procedures Review of Systems As described above or not pertinent to present em (more content not included)... Normal [facility] Progress Noteson 07-25-2019 Progress Notes Encounter Department : [facility] Progress Notes by Cari Davenport MD at 07/25/2019 6:51 AM Author: KAELA Méndezervice: Family MedicineAuthor Type: Physician Filed: 07/25/2019 6:52 AMDate of Service: 07/25/2019 6:51 AMStatus: Signed [place] Dust Collector: Cari Davenport MD (Physician) FAMILY PRACTICE FOLLOW-UP VISIT Name: Cory Segura/Time of Admission: 07/22/2019 4:32 PM CSN: [id number] Provider: Lebron Peña MD Room/Bed: 6301/6301-01DOB: 1995 Age: 23 y.o. S: Patient is without physical complaints at this time. O: BP 106/51 Pulse 79 Temp 98.4 ?F (36.9 ?C) Resp 16 Ht 5' 1 (1.549 m) Wt 148 lb (67.1 kg) SpO2 100% BMI 27.96 kg/m? No intake or output data in the 24 hours ending 07/25/19 0651 EXAM: GENERAL: NAD, alert and cooperative with exam LUNGS: Clear to ausculation bilaterally HEART: Regular rate and rhythm without murmur ABDOMEN: Soft, positive bowel sounds, ND, NT EXTREMITIES: No edema. Left arm wounds without erythema or drainage IMAGING No results found for this visit on 07/22/19. LABS Admission on 07/22/2019 ComponentDateValue -TSH07/23/20191.045 -Hemoglobin A1C07/23/20195.6 -Mean Plasma Prhgush5707/23/2019114 -Lyaydfwunlm65/23/201 9171 -Yarkbxhdjmdwo33/23/2 032804* -HDL07/23/201960 -LDL Xbeujdttsqr85/23/2019 69 -VLDL07/23/201942* Diagnosis -*Severe episode of recurrent major depressive disorder, without psychotic features (HCC) -Alcohol abuse, continuous -Cigarette nicotine dependence with withdrawal -Tachycardia -Multiple lacerations PLAN: No signs of etoh withdrawal. Heart rate stable. Continue cleocin and bacitracin to arm wounds. Electronically signed by: Cari Davenport MD 07/25/2019 [facility] Progress Noteson 07-24-2019 Progress Notes Encounter Department : [facility] Progress Notes by Cari Davenport MD at 07/24/2019 8:45 AM Author: KAELA Méndezervice: Family MedicineAuthor Type: Physician Filed: 07/24/2019 8:47 AMDate of Service: 07/24/2019 8:45 AMStatus: Signed [place] Dust Collector: Cari Davenport MD (Physician) FAMILY PRACTICE FOLLOW-UP VISIT Name: Cory Segura/Time of Admission: 07/22/2019 4:32 PM CSN: [id number] Provider: Lebron Peña MD Room/Bed: 6301/6301-02DOB: 1995 Age: 23 y.o. S: Patient is without medical complaints this am. O: BP 120/51 Pulse 76 Temp 98.1 ?F (36.7 ?C) Resp 18 Ht 5' 1 (1.549 m) Wt 148 lb (67.1 kg) SpO2 100% BMI 27.96 kg/m? No intake or output data in the 24 hours ending 07/24/19 0845 EXAM: GENERAL: NAD, alert and cooperative with exam LUNGS: Clear to ausculation bilaterally HEART: Regular rate and rhythm without murmur ABDOMEN: Soft, positive bowel sounds, ND, NT EXTREMITIES: multiple wounds left arm- scabbed, no bleeding or drainage at this time. IMAGING No results found for this visit on 07/22/19. LABS Admission on 07/22/2019 ComponentDateValue -TSH07/23/20191.045 -Hemoglobin A1C07/23/20195.6 -Mean Plasma Wawlekb4107/23/2019114 -Tbtnpembaov32/23/201 9171 -Bmujunaqsbcsr75/23/2 213775* -HDL07/23/201960 -LDL Hpcvbnwyycs78/23/2019 69 -VLDL07/23/201942* Diagnosis -*Severe episode of recurrent major depressive disorder, without psychotic features (HCC) -Alcohol abuse, continuous -Cigarette nicotine dependence with withdrawal -Tachycardia -Multiple lacerations PLAN: No signs of etoh withdrawal at this time- continue CIWA. Heart rate normal at this time. Continue clinda/bacitracin. Electronically signed by: Cari Davenport MD 07/24/2019 [facility] Consultson 07-23-2019 Consults Encounter Department : [facility] Consults by Cari Davenport MD at 07/23/2019 7:56 AM Author: KAELA Méndezervice: Family MedicineAuthor Type: Physician Filed: 07/23/2019 8:04 AMDate of Service: 07/23/2019 7:56 AMStatus: Signed [place] Dust Collector: Cari Davenport MD (Physician) Family Practice Consult Note NAME: Cory CarlOB: 1995 DATE: 07/23/2019 CHIEF COMPLAINT Medical issues HPI Cory Shelley is a 23 y.o. male who presents to [facility] for psychiatric stabilization. The patient has a history of alcohol abuse-primarily binge drinking. He also has multiple self-inflicted cuts to forearm-stating he used clean razor. PAST MEDICAL HISTORY Past Medical History: DiagnosisDate -ADHD (attention deficit hyperactivity disorder) -Anxiety -Uuypzxoqqu43/22/2019 SURGICAL HISTORY History reviewed. No pertinent surgical history. FAMILY HISTORY Family History ProblemRelationAge of Onset -CancerMother -DementiaFather SOCIAL HISTORY Social History Socioeconomic History -Marital status:Unknown Spouse name:None -Number of children:None -Years of education:None -Highest education level:None Occupational History -None Social Needs -Financial resource strain:None -Food insecurity: Worry:None Inability:None -Transportation needs: Medical:None Non-medical:None Tobacco Use -Smoking status:Light Tobacco Smoker Years:9.00 -Smokeless tobacco:Never Used -Tobacco comment: smokes when drinking Substance and Sexual Activity -Alcohol use:Yes Frequency:2-3 times a week Drinks per session:5 or 6 Binge frequency:Weekly Comment: 12-24 drinks per week -Drug use:Yes Types:Marijuana Comment: monthly, few hits of a pen -Sexual activity:Yes Lifestyle -Physical activity: Days per week:None Minutes per session:None -Stress:None Relationships -Social connections: Talks on phone:None Gets together:None Attends christianity service:None Active member of club or organization:None Attends meetings of clubs or organizations:None Relationship status:None -Intimate partner violence: Fear of current or ex partner:None Emotionally abused:None Physically abused:None Forced sexual activity:None Other TopicsConcern -None Social History Narrative -None ALLERGIES No Known Allergies CURRENT MEDICATIONS Scheduled Meds: -bacitracinTopicalTWO TIMES DAILY -multivitamin with folic acid 1 tabletOralDAILY -thiamine (B-1) 100 mgOralDAILY Continuous Infusions: PRN Meds:.acetaminophen, aluminum-magnesium hydroxide-simethicone , benztropine OR benztropine, haloperidol OR haloperidol lactate, hydrOXYzine pamoate, loperamide, loperamide, LORazepam OR LORazepam, magnesium hydroxide, Nicotine (Polacrilex) REVIEW OF SYMPTOMS Review of Systems - General ROS: negative Ophthalmic ROS: negative ENT ROS: negative Allergy and Immunology ROS: negative Hematological and Lymphatic ROS: negative Endocrine ROS: negative Respiratory ROS: no cough, shortness of breath, or wheezing Cardiovascular ROS: no chest pain or dyspnea on exertion Gastrointestinal ROS: no abdominal pain, change in bowel habits, or black or bloody stools Genito-Urinary ROS: no dysuria, trouble voiding, or hematuria Musculoskeletal ROS: negative Neurological ROS: no TIA or stroke symptoms Dermatological ROS: negative PHYSICAL EXAM VITAL SIGNS: BP 138/86 Pulse 112 Temp 98.5 ?F (36.9 ?C) Resp 18 Ht 5' 1 (1.549 m) Wt 148 lb (67.1 kg) SpO2 100% BMI 27.96 kg/m? Constitutional: Well developed, Well nourished, No acute distress, Alert and cooperative with exam. HENT: Normocephalic, Atraumatic, Bilateral external ears normal. Tm's clear,Nose normal, Nares clear, Oropharynx moist, No oral exudates. Eyes: PERRLA, EOMI, Conjunctiva normal, No discharge. Neck: No tenderness, Supple, No adenopathy. Cardiovascular: Normal heart rate, Normal rhythm, No murmurs, No rubs, No gallops. Thorax AND Lungs: Normal breath sounds, No respiratory distress, No wheezing Abdomen: Bowel sounds normal, Soft, No tenderness, No masses, No pulsatile masses. Skin: Warm, Dry, No rash. numeorous scabbed lacerations/abrasions to forearm. No erythema. Back: Normal curvature Extremities: Intact distal pulses, No edema, No cyanosis, No clubbing. Musculoskeletal: Good range of motion in all major joints. No tenderness to palpation or major deformities noted. Neurologic: Normal motor function, Normal sensory function, No focal deficits noted. Psychiatric: See note from Psychiatrist. IMAGING No results found for this visit on 07/22/19. LABS Admission on 07/22/2019, Discharged on 07/22/2019 ComponentDateValue -Extra Tube07/22/2019Receive d -Extra Tube07/22/2019Receive d -WBC07/22/20196.3 -RBC07/22/20195.57 -HGB109/22/201815.4 -HCT07/22/201946.1 -MCV07/22/201982.7* -MCH07/22/201927.7* -MCH07/22/201933.5 -RDW07/22/201914.0 -Platelet count07/22/2019221 -Neutrophils %07/22/201947.9 -Lymphocytes %07/22/201942.0 -Monocytes %07/22/20197.2 -Eosinophils %.5 -Basophils %07/22/20190.4 -Neutrophils Mnrmkruf37/22/01806.0 -Lymphocytes Vrxssmft72.7 -Monocytes Xxzvsunj26/22/69169.5 -Eosinophils Izqlaqje86/22/38032.2 -Basophils Qibrjcfl14/22/64597.0 -Jbaalo0107/22/2019143 -Bpqxjhvsd15/22/32944 .8 -Cmwotaca73/22/689991 5 -CO207/22/201927 -Anion Gap07/22/201911 -Yxgsxuw5207/22/2019104 -BUN07/22/201918 -Dtygtdxyyy34/22/2019 1.0 -Ezipyjt5407/22/20199.5 -AST07/22/201925 -ALT07/22/201928 -Alkaline Abucurmwlre30/22/2019 115* -Protein, Total07/22/20198.0 -Coreydc4207/22/20194.9 -Total Qgxhoqqnq24/22/08688. 7 -AG Ratio07/22/20191.6 -Aujpueqm40/22/15929. 1 -eGFR PbfjzdwQltkltax02/22/ 2019>60 -GFR MDRD Non Af Amer07/22/2019>60 -Acetaminophen Level07/22/2019<10* -Ioznjue857 * -Pttkcfyaxx50/22/2019 <2.5* -Amphetamine Metab07/22/2019Negati ve -Rpksgjbzbqqs76/22/20 19Negative -Benzodiazepine Urine07/22/2019Negati ve -Opiate Metab07/22/2019Negati ve -Cannabinoid Metab07/22/2019Negati ve -Wdwawkv8307/22/2019Neg ative -Extra Tube07/22/2019Receive d -Extra Tube07/22/2019Receive d Diagnosis -Alcohol abuse, continuous -Cigarette nicotine dependence with withdrawal -Tachycardia -Multiple lacerations -Bipolar disorder (HCC) PLAN: No signs of etoh withdrawal at this time- patient placed on CIWA. Bacitracin to lacerations. Smoking cessation. ELECTRONICALLY SIGNED BY: Cari Davenport MD07/23/2019 Normal [facility] HEMOGLOBIN A1Con 07-23-2019 HbA1c (Bld) [Mass fraction] Normal [facility] Comment on above: Result Comment: Ther apeutic goals for glycemic control: -Goal of therapy :< 7.0% HbA1c -Action suggested: >8.0% HbA1c Performed By: #### L [id number] #### [address] #### [id number] #### [place] [phone] HbA1c (Bld) [Mass fraction] 5.6 % Normal 4.0-6.0 [facility] Comment on above: Performed By: #### L [id number] #### [facility] [address] [place] [address] #### [id number] #### [place] [id number] HbA1c (Bld) [Mass fraction] 114 MG/DL Normal 68-126 [facility] Comment on above: Performed By: #### L [id number] #### [facility] [address] [place] [address] #### [id number] #### [address] [facility] [address] [facility]. [place], [place] [address] History and Physicalon 07-23 History and Physical Encounter Departmen t: [facility] HANDP by Lebron Peña MD at 07/23/2019 7:19 AM Author: KAELA Cuevaservice: PsychiatryAuthor Type: Physician Filed: 07/23/2019 9:59 AMDate of Service: 07/23/2019 7:19 AMStatus: Signed [place] Dust Collector: Lebron Peña MD (Physician) DISCLOSURE OF THIS INFORMATION TO THE PATIENT WITHOUT THE PSYCHIATRIST'S PERMISSION MAY CAUSE HARM TO THE PATIENT. Initial Intake History and Physical Cory Shelley, 23 y.o., male Chief Complaint: Suicidal thoughts History of Presenting Illness: PER [facility] REPORT: Patient presents as a 23-year-old single/employed white male who currently lives alone. Patient was transported to this emergency department by Police on an Applications for Involuntary admission due to patient endorsing suicidal thoughts. Patient was observed to have several lacerations on his arm and currently reports cutting himself as well as putting a belt around his neck with the intent to end his life. Patient currently reports struggling with depression and has recently felt hopeless and helpless to the point he wishes he was not here. Patient remained in the emergency department for several hours due to patient being intoxicated upon arrival. Patient is now clinically sober and continues to endorse suicidal thoughts but is now unsure as to what he would do but does agree when he becomes emotional je does impulsive and risky thigs, Patient was asked to share something about himself others did not know. Patient responded by saying he is a lot like Adriel Saul. Than people know. Patient reports multipole stressors including being new to the area and therefore has no support, limited resources and is having financial and housing problems. Patient reports a psychiatric history of ADHD, Depression and Anxiety. Patient reports in the past he was prescribed Vyvanse and Effexor. Patient reports these medications did help but he has not taken them in several months despite only being new to this area for a month. Patient reports depressive symptoms including poor sleep and appetite as well as decreased energy and motivation. Patient denies any substance abuse history but does report using alcohol more frequently lately but is unsure as to how much he drinks. Patient denies any legal history including any charges for aggression or violence. Patient processed available treatment options as well as the risks and benefits associated with each. Patient can verbalize understanding treatment options as well as a willingness to actively participate in all treatment recommendations and interventions provided. TODAY: Reviewed above with patient who clarifies Adriel Kg statement I'm the least likely person to do this. I'm working and joking. Has been off meds for 3-4 years. Thinks Effexor worked well 3-4 years ago when he was taking it regularly. H estates cutting isn't a normal thing for him. Feels it was due to drinking. He states yesterday he was upset at himself for not reaching the goals he'd set for himself. Also states he also needs love and attention which drove him to cut as well. Current depression started earlier this brought on by loneliness and disappointment in self. First experienced depression at age 19 or 20 due to of mother and being not as close to family. He states he can't say when this SI came on but feels it was relates to the above. Reports depression feeling sad more days than not, no crying spells, but reports anhedonia, suicidal ideation (denies currently), sleep disturbance, appetite disturbance, fatigue, hopelessness, guilt, with low self esteem. High acuity currently, with risk of harm involved if not hospitalized, as patient remains very psychiatrically ill and unable to be safe in a lesser setting. Psychiatric Review of Symptoms: Denies current panic, PTSD, OCD, psychotic, manic, somatoform, eating disorder, substance abuse or substance withdrawal symptoms except as noted above in the HPI. ROS for all other systems negative. Previous Mental Health Treatment: Current Outpatient Treatment?: No Past Inpatient Treatment?: Yes Describe:: Some hospital in [place] Past Outpatient Treatment?: Yes Locations and Dates:: Unkown providers Psych History: Depression PAST MEDICATIONS: Effexor Vyvanse Medications at time of Admission: Outpatient Medications Marked as Taking for the 07/22/19 encounter (Hospital Encounter) MedicationSigDispense Refill -NONFORMULARY REQUEST Substance Use History: Beer use has increased since moving to [place] q3-4 days, 2-6 beers at a time Last Marijuana was 3-4 weeks ago Social History: Lives by self Social History Socioeconomic History -Marital status:Unknown Spouse name:Not on file -Number of children:Not on file -Years of education:Not on file -Highest education level:Not on file Occupational History -Not on file Social Needs -Financial resource strain:Not on file -Food insecurity: Worry:Not on file Inability:Not on file -Transportation needs: Medical:Not on file Non-medical:Not on file Tobacco Use -Smoking status:Light Tobacco Smoker Years:9.00 -Smokeless tobacco:Never Used -Tobacco comment: smokes when drinking Substance and Sexual Activity -Alcohol use:Yes Frequency:2-3 times a week Drinks per session:5 or 6 Binge frequency:Weekly Comment: 12-24 drinks per week -Drug use:Yes Types:Marijuana Comment: monthly, few hits of a pen -Sexual activity:Yes Lifestyle -Physical activity: Days per week:Not on file Minutes per session:Not on file -Stress:Not on file Relationships -Social connections: Talks on phone:Not on file Gets together:Not on file Attends christianity service:Not on file Active member of club or organization:Not on file Attends meetings of clubs or organizations:Not on file Relationship status:Not on file -Intimate partner violence: Fear of current or ex partner:Not on file Emotionally abused:Not on file Physically abused:Not on file Forced sexual activity:Not on file Other TopicsConcern -Not on file Social History Narrative -Not on file Medical History: Past Medical History: DiagnosisDate -ADHD (attention deficit hyperactivity disorder) -Anxiety -Pjafxzsmjy56/22/2019 Family Medical and Psychiatric History: Family History ProblemRelationAge of Onset -CancerMother -DementiaFather Allergies: Patient has no known allergies. PHYSICAL EXAM: Constitutional: BP 138/86 Pulse 112 Temp 98.5 ?F (36.9 ?C) Resp 18 Ht 5' 1 (1.549 m) Wt 148 lb (67.1 kg) SpO2 100% BMI 27.96 kg/m? Adequately developed and nourished. Appearance: adequate hygeine, interactive, no obvious scars and no overt physical deformities. HENT: Normocephalic, atraumatic, external ears and nose normal. Eyes: Extra-ocular muscles intact, no icterus, no conjunctival injection, no discharge. Cardiovascular: per medical HANDP. Respiratory: No respiratory distress. Skin: Warm, dry, no rashes nor erythema noted. Musculoskeletal: Ambulates without difficulty, full range of motion of extremities seen, no limb rigidity. Muscle strength and tone normal. Neurological: No facial droop, no eye droop, expressions of face symmetric, no resting or intention tremors, no signs of extrapyramidal symptoms or signs of tardive dyskinesia or akathisia noted on exam. Cranial Nerves function noted as follows: Olfactory nerve - CN I Patient reports no difficulty in smelling food. Optic nerve - CN II Patient reports no visual field deficits Oculomotor nerve - CN III Patient denies diplopia. Trochlear nerve - CN IV Patient able to view the tip of his or her nose. Trigeminal nerve - CN V Patient reports no loss of sensory to the face, full range of facial expressions, and able to chew. Abducens nerve - CN Patient denies diplopia. Facial nerve - CN VII Patient able to smile, puff cheeks, eye close without difficulty. Vestibulocochlear nerve - CN VIII Patient denies hearing loss. Glossopharyngeal nerve - CN IX Patient denies loss of taste. Vagus nerve - CN X Patient able to swallow without difficulty. No hoarseness of the voice. Spinal accessory nerve - CN XI Patient able to shrug shoulders and turn head side to side. Hypoglossal nerve - CN XII No tongue atrophy or deviation. OBJECTIVE Mental Status Examination: General: appropriate hygiene and eye contact Capacity for ADLs: fair Motor: ambulates, moves all extremities Speech: regular rate, normal volume, non-pressured, spontaneous Language: normal; able to name objects and repeat phrases. Mood: relaxed Affect: restricted range, dysphoric, appropriate to stated mood Thought Process: linear, logical, and goal-directed. Leupp vs abstract reasoning? fair Computational - able to calculate serial 3's. 5/5 Organization: thoughts, behaviors, and speech are all organized on exam today. Thought Content: Reports NO suicidal ideations. Reports NO homicidal ideations. Reports NO paranoid thoughts. NO delusions are evident. Perceptions: Reports NO auditory hallucinations. Reports NO visual hallucinations. Attention: fair Orientation: oriented to person, place, time and situation Memory: appears adequate in recent and remote memory. Insight: limited or adequate. Aware of need for treatment Judgment: limited - suicidal thoughts Intelligence: estimated at average Fund of Knowledge: adequate awareness of recent current events. Neurological: no EPS seen, no akathisia, no signs of tardive dyskinesia; ASSESSMENT 1. Major Depressive Disorder 2. Alcohol Abuse PLAN 1. Medication: Start Effexor XR 75 mg QAM 2. Risks, benefits, and side effects have been discussed with patient who agrees. Discussed risks, benefits, side effects, and alternatives to using an antidepressant, including therapy and/or use of no medication. Risks discussed included possible suicidal ideation, cardiovascular, sexual, metabolic (including weight gain or loss), gastrointestinal, and integumentary side effects. Discussed risks, benefits, side effects and alternatives to using an antipsychotic, including using no medication. Risks include tardive dyskinesia and EPS, seizures, elevated blood sugars or diabetes, elevated lipids, weight gain, cardiovascular effects, and NMS, several of which may be irreversible if they occur. 3. Appreciate Dr. Glover's and Dr. Maldonado's management of patient's medical issues. 4. Appropriate labs will be ordered and reviewed. 5. Encouraged groups and milieu as tolerated. Electronically Signed By: Lebron Peña MD 07/23/2019 7:20 AM Normal [facility] LIPID PANELon 07-23-2019 Cholesterol [Mass/Vol] 60 mg/dL Normal 40-[address] [facility] Comment on above: Performed By: #### L [id number] #### [address] #### [id number] #### [place] [address] Cholesterol [Mass/Vol] 171 mg/dL Normal <[address] [facility] Comment on above: Performed By: #### L [id number] #### [facility] [address] [place] [address] #### [id number] #### [place] [address] Cholesterol in LDL [Mass/Vol] 69 mg/dL Normal 0-99 [facility] Comment on above: Performed By: #### L [id number] #### [address] #### [id number] #### [address] [place] [address] Triglyceride [Mass/Vol] 212 mg/dL Abnormal <150 [facility] Comment on above: Performed By: #### L [id number] #### [facility] [address] [place], [place] [address]VD. [address] #### [id number] #### [address] [place] [address] VLDL CHOLESTEROL 42 MG/DL Abnormal 0-40 [facility] Comment on above: Performed By: #### L [id number] #### [address] #### [id number] #### [place] [phone] TSHon 07-23-2019 TSH Qn 1.045 uIU/mL Normal 0.450-4.120 [facility] Comment on above: Result Comment: Jenna sainz note the new reference range for this test. Performed By: #### L [id number] #### [address] #### [id number] #### [address] [place] [phone] CBC W/DIFFon 07-22-2019 BASOPHILS ABS AUTO 0.0 K/uL Normal 0.0-0.1 [facility] Comment on above: Performed By: #### L [id number] #### [address] Basophils/100 WBC (Bld) 0.4 % Normal [facility] Comment on above: Performed By: #### L [id number] #### [facility] [address] [place] [address] Eosinophils (Bld) [#/Vol] 0.2 10*3/uL Normal 0.0-0.4 [facility] Comment on above: Performed By: #### L [id number] #### [address] Eosinophils/100 WBC (Bld) 2.5 % Normal [facility] Comment on above: Performed By: #### L [id number] #### [address] Erythrocyte distribution width (RBC) [Ratio] 14.0 % Normal 11.7-15.2 [facility] Comment on above: Performed By: #### L [id number] #### [address] Hematocrit (Bld) [Volume fraction] 46.1 % Normal 39.0-51.5 [facility] Comment on above: Performed By: #### L [id number] #### [address] Hemoglobin (Bld) [Mass/Vol] 15.4 g/dL Normal 13.1-17.6 [facility] Comment on above: Performed By: #### L [id number] #### [address] Lymphocytes (Bld) [#/Vol] 2.7 10*3/uL Normal 0.8-3.6 [facility] Comment on above: Performed By: #### L [id number] #### [address] Lymphocytes/100 WBC (Bld) 42.0 % Normal [facility] Comment on above: Performed By: #### L [id number] #### [address] MCH (RBC) [Entitic mass] 27.7 pg Abnormal 28.4-33.4 [facility] Comment on above: Performed By: #### L [id number] #### [address] MCHC (RBC) [Mass/Vol] 33.5 g/dL Normal 31.1-37.0 [facility] Comment on above: Performed By: #### L [id number] #### [address] [place] [address] [place] MCV (RBC) [Entitic vol] 82.7 fL Abnormal 85.0-99.0 [facility] Comment on above: Performed By: #### L [id number] #### [address] [place] [address] [place] Monocytes (Bld) [#/Vol] 0.5 10*3/uL Normal 0.3-0.9 [facility] [facility] Comment on above: Performed By: #### L [id number] #### [address] [place] [address] [place] Monocytes/100 WBC (Bld) 7.2 % Normal [facility] Comment on above: Performed By: #### L [id number] #### [address] [place] [address] [place] NEUTROPHIL ABS AUTO 3.0 K/uL Normal 2.0-7.3 [facility] Comment on above: Performed By: #### L [id number] #### [address] [place] [address] [place] Neutrophils/100 WBC (Bld) 47.9 % Normal [facility] Comment on above: Performed By: #### L [id number] #### [address] [place] [address] [place] Platelets (Bld) [#/Vol] 221 10*3/uL Normal 154-393 [facility] Comment on above: Performed By: #### L [id number] #### [address] [place] [address] [place] RBC (Bld) [#/Vol] 5.57 10*6/uL Normal 4.30-5.86 [facility] Comment on above: Performed By: #### L [id number] #### [address] [place] [address] [place] WBC (Bld) [#/Vol] 6.3 10*3/uL Normal 4.0-10.5 [facility] Comment on above: Performed By: #### L [id number] #### [id number] COMPREHENSIVE METABOLIC PANE Estuardo 07-22-2019 Albumin [Mass/Vol] 4.9 g/dL Normal 3.5-5.7 [facility] Comment on above: Performed By: #### L [id number] #### [facility] [address] [place] [address] #### [id number] #### [place] [address] Albumin/Globulin [Mass ratio] 1.6 {ratio} Normal 1.0-2.0 [facility] Comment on above: Performed By: #### L [id number] #### [facility] [address] [place] [address] #### [id number] #### [place] [phone] ALP [Catalytic activity/Vol] 115 U/L Abnormal 34-104 [facility] Comment on above: Result Comment: Plea se note the new reference range for this test. Performed By: #### L [id number] #### [facility] [address] [place] [address] #### [id number] #### [place] [address] ALT [Catalytic activity/Vol] 28 U/L Normal 7-52 [facility] Comment on above: Result Comment: Plea se note the new reference range for this test. Due to new methodology, please rebaseline this test for any patient transferred from [facility] or [facility]. Performed By: #### L [id number] #### [facility] [address] [place] [address] #### [id number] #### [place] [id number] [place] [phone] Anion gap [Moles/Vol] 11 mmol/L Normal 7-16 [facility] Comment on above: Performed By: #### L [id number] #### [facility] [address] [place], [place] [address] [address] [facility] #### [id number] #### [facility] [address] [place] [address]. [place] [address] [place] [address] AST [Catalytic activity/Vol] 25 U/L Normal 15-39 [facility] Comment on above: Performed By: #### L [id number] #### [facility] [address] [place], [place] [address] [address] [facility] #### [id number] #### [facility] [address] [place] [address]. [place] [address] [place] [address] Bilirubin Ql (U) 0.7 MG/DL Normal 0.3-1.0 [facility] Comment on above: Performed By: #### L [id number] #### [facility] [address] [place] [address]. [place] [phone] [facility] #### [id number] #### [address] [place], [place] [address] [place] [address]. [place] [address] Calcium [Mass/Vol] 9.5 mg/dL Normal 8.6-10.2 [facility] Comment on above: Performed By: #### L [id number] #### [facility] [address] [place], [place] [address]VD. [place] [phone] [facility] #### [id number] #### [facility] [address] [place] [address]. [place] [address] [place] [address] Chloride [Moles/Vol] 105 mmol/L Normal 98-107 [facility] Comment on above: Performed By: #### L [id number] #### [facility] [address] [place], [place] [address] [address] [place] #### [id number] #### [facility] [address] [place], [place] [address] [address] [place] [address] CO2 [Moles/Vol] 27 mmol/L Normal 21-31 [facility] Comment on above: Performed By: #### L [id number] #### [facility] [address] [place] [address]. [address] #### [id number] #### [address] [place] [phone] [place] [phone] Creatinine [Mass/Vol] 1.0 mg/dL Normal 0.7-1.3 [facility] Comment on above: Performed By: #### L [id number] #### [facility] [address] [place] [address]. [address] #### [id number] #### [place] [phone] GFR MDRD NON AF AMER >60 Normal >60 [facility] Comment on above: Result Comment: GFR is estimated using creatinine, age, gender, and race. Patient's values should be interpreted as a trend. For additional information: [email or web address] Performed By: #### L AB17 #### [address] #### [id number] #### [place] [phone] GFR/1.73 sq M predicted among blacks MDRD (S/P/Bld) [Vol rate/Area] mL/min/{1.73_m2} Normal >60 [facility] Comment on above: Result Comment: GFR is estimated using creatinine, age, gender, and race. Patient's values should be interpreted as a trend. For additional information: www.[email or web address] Performed By: #### L AB17 #### [facility] [address] [place] [address]. [place] [phone] [facility] #### [id number] #### [facility] [address] [place] [address] Globulin (S) [Mass/Vol] 3.1 g/dL Normal 2.6-4.2 [facility] Comment on above: Performed By: #### L [id number] #### [facility] [address] [place], [place] [address]VD. [address] #### [id number] #### [facility] [address] [place] [address]. [address] [place] [address] Glucose [Mass/Vol] 104 mg/dL Normal 74-109 [facility] Comment on above: Performed By: #### L [id number] #### [facility] [address] [place], [place] [address]VD. [address] #### [id number] #### [address] [place] [address] Potassium [Moles/Vol] 3.8 mmol/L Normal 3.5-5.3 [facility] Comment on above: Performed By: #### L [id number] #### [facility] [address] [place], [place] [address] #### [id number] #### [address] [place] [address] Protein [Mass/Vol] 8.0 g/dL Normal 6.0-8.3 [facility] Comment on above: Performed By: #### L AB17 #### [facility] [address] [place], [place] [address]VD. [address] #### [id number] #### [facility] [address] [place], [place] [address]. [address] [place] [address] Sodium [Moles/Vol] 143 mmol/L Normal 136-145 [facility] Comment on above: Performed By: #### L [id number] #### [facility] [address] [place] [address] #### [id number] #### [place] [address] Urea nitrogen [Mass/Vol] 18 mg/dL Normal 7-25 [facility] Comment on above: Performed By: #### L [id number] #### [facility] [address] [place] [address] #### [id number] #### [facility] [address] [place] [address] Consultson 07-22-2019 Consults Encounter Department : [facility] Consults by SHARON James at 07/22/2019 2:29 PM Author: NITESH Jameservice: PsychiatryAuthor Type: ANGELINA Specialist Filed: 07/22/2019 2:29 PMDate of Service: 07/22/2019 2:29 PMStatus: Signed Ore Crushing Dust Collector: SHARON James (ANGELINA Specialist) Consult Orders 1. Behavioral Health Assessment Consult [[id number]] ordered by Eric Landrum MD at 07/22/19 0825 Name: Cory Shelley : 1995 [facility] Emergency Dept [address] [place] [address] Identifying Information:Patient presents as a 23-year-old single/employed white male who currently lives alone. Patient was transported to this emergency department by Police on an Applications for Involuntary admission due to patient endorsing suicidal thoughts. Patient was observed to have several lacerations on his arm and currently reports cutting himself as well as putting a belt around his neck with the intent to end his life. Patient currently reports struggling with depression and has recently felt hopeless and helpless to the point he wishes he was not here. Patient remained in the emergency department for several hours due to patient being intoxicated upon arrival. Patient is now clinically sober and continues to endorse suicidal thoughts but is now unsure as to what he would do but does agree when he becomes emotional je does impulsive and risky thigs, Patient was asked to share something about himself others did not know. Patient responded by saying he is a lot like Adriel Saul. Than people know. Patient reports multipole stressors including being new to the area and therefore has no support, limited resources and is having financial and housing problems. Patient reports a psychiatric history of ADHD, Depression and Anxiety. Patient reports in the past he was prescribed Vyvanse and Effexor. Patient reports these medications did help but he has not taken them in several months despite only being new to this area for a month. Patient reports depressive symptoms including poor sleep and appetite as well as decreased energy and motivation. Patient denies any substance abuse history but does report using alcohol more frequently lately but is unsure as to how much he drinks. Patient denies any legal history including any charges for aggression or violence. Patient processed available treatment options as well as the risks and benefits associated with each. Patient can verbalize understanding treatment options as well as a willingness to actively participate in all treatment recommendations and interventions provided. Presenting Problem:Suicide Attempt Other Presenting Problem Narrative: ReferralSource:Referr al Source: Law Enforcement/Medic Law Enforcement/ Medic: [facility] Department Psychiatric Directive:(None Reported) call out clerk:Unknown Custody/Guardianship: Guardian Type: Self Psychosocial Data: Marital Status: Single Who do you live with?: Alone Family of Origin: Biological Sexual orientation: Heterosexual Source of Emotional Support: None Marital/relationship problems: No Number of Children (ages): 0 Parent/child conflict: No Parenting skill problems: No Service in the : No Highest academic level completed: 12th Culture/Specific Needs: Needs Expressed: Emotional Cultural Requests During Hospitalization: None Spiritual Requests During Hospitalization: None Domestic Abuse Assessment: Current Abuse: Patient Denies Previous Mental Health Treatment: Current Outpatient Treatment?: No Past Inpatient Treatment?: Yes Describe:: Some hospital in [place] Past Outpatient Treatment?: Yes Locations and Dates:: Unkown providers Psych History: DepressionYes Social History Substance and Sexual Activity Alcohol UseYes No family history on file. Reviewed: @HXREV@ Chemical Abuse Screen: History of Withdrawal Symptoms: Denies past symptoms Substance Abuse Treatment Hx: Denies past history Any family history of substance abuse problems?: None Reported Used chemicals (other than as prescribed) in the past 12 Months?: No Have you tried to cut down or control your use of alcohol or other drugs?: No Do you feel nicole when questioned about your substance abuse?: No Do you feel guilty about your substance abuse?: No Do you use substances in the morning?: No Have alcohol/drugs caused probelms?: No Was toxicology done?: Yes If yes, does it correspond with patient report?: Yes If toxicology report does not correspond with patient report, please note discrepancy:: Negative Chemical 1: Chemical Used: Amount/Frequency: Route: Age First Used: Last Use: Chemical 2: Chemical Used: Amount/Frequency: Route: Age First Used: Last Use: Chemical 3: Chemical Used: Amount/Frequency: Route: Age First Used: Last Use: Chemical 4: Chemical Used: Amount/Frequency: Route: Age First Used: Last Use: Affect/Mood: Affect: Flat Mood: Calm Speech: Pace: Normal Volume: Normal Form: Logical Clarity: Clear Content: Normal Orientation/Concentra tion/Memory: Orientation Level: Oriented X4 Concentration: Alert Memory: Intact Judgment: Poor Insight: Intellectual awareness Estimated Intelligence: Average Thought Content: Content: None Reported Perception: Hallucinations: None Behavior: Eye Contact: Direct Behavior: Cooperative Hygiene: Fair Appetite: Decreased Sleep: Sleep Pattern: Difficulty falling asleep Average Number of Sleep Hours: 4 Use of Sleep Aids: None Lethality Assessment Suicidal Ideation: Suicidal Ideation: Specific Plan (High Risk) Means Accessibility (Harm): Possesses (High Risk) Access to weapons: Knife, Other (Comment)(Belt to choke himself) Lethality of Means (Harm): Potentially Lethal (Mod Risk) Suicidal History: Gesture(s) (Mod Risk) Lethality of Attempts: Injurious (Mod Risk) Last Attempt: Less Than 6 Months (High Risk) Family History: None (No Risk) Plan to Harm Others: Plan to Harm Others: None (No Risk) Assault History: None (No Risk) Lethality of Assaults: None (No Risk) Last Assault: None (No Risk) Family History: None(No Risk) Physical Abuse History: Physical Abuse History: None (No Risk) Sexual Abuse History: None (No Risk) Neglect History: None (No Risk) Exploitation: None (No Risk) Impulsivity: Occasional (Low Risk) Stress: Severe (High Risk) Loss: > 2 Years (Low Risk) Physical Condition: Excellent (No Risk) Financial Stress: Moderate (Mod Risk) Living Arrangements: With Others (Low Risk) Male Age Suicide: 13-34 (Mod Risk) Male Age Homicide: 17-30 (High Risk) Overall Risk Level (No Risk): Others Overall Risk Level (High): Self Lethality Assessment Information: Lethality Detail: Patient reports suicidal thoughts and recently attempted t choke himself woth a belt as well as cut his wrists Physician Contact: Diagnosis Provided By:: Per Pt Report/History Clinical Diagnosis: Bipolar Disorder F31.5 Substance Use Diagnosis: Alcohol abuse Personality Disorders: Deferred Psychosocial Stressors: Poor coping skills and treatment compliance Physician contacted?: Yes Physician Name:: Dr Landrum Physician Contact Comments:: Wants Dr. Macias called Psychiatrist contacted?: Yes Psychiatrist Name:: Dr Macias Psychiatrist Contact Comments:: Agrees to admit to [facility] There is no problem list on file for this patient. Insurance Information/Pre-Auth: Self Pay?: Yes Disposition: Perception of Needs:: Inpatient Psychiatric care Patient Disposition: [facility] Adult Inpatient Patient Discharged: No Admit/Transfer: Yes Admission Type: Involuntary Facility transferred to:: [facility] Mode of transport:: Ambulance Cobra/Transport form completed?: Yes Follow up per Interdisciplinary Treatment Team recommendations:: Yes Facility Contact:: Anai Admitting Physician:: Dr. Macias [facility] DRUGS OF ABUSE URINEon 07-22 AMPHETAMINE METAB Negative Normal Negative [facility] Comment on above: Performed By: #### L [id number] #### [place] [address] BARBITURATES Negative Normal Negative [facility] Comment on above: Performed By: #### L [id number] #### [facility] [address] [place] [address] Benzodiazepines Ql (U) Negative Normal Negative [facility] Comment on above: Performed By: #### L [id number] #### [facility] [address] [place] [address] CANNABINOID METAB Negative Normal Negative [facility] Comment on above: Performed By: #### L [id number] #### [facility] [address] [place], [place] [phone] Cocaine Ql (U) Negative Normal Negative [facility] Comment on above: Performed By: #### L [id number] #### [place] [phone] DRUGS OF ABUSE URINE Normal [facility] Comment on above: Result Comment: Son carpio includes: Amphetamines, Barbiturates, Benzodiazepines, Cocaine, Opiates, THC Drug Screen Cut-off values: Amphetamines 300 ng/ml Benzodiazepines 200 ng/ml Barbiturates 200 ng/ml Cocaine metabolite 300 ng/ml Cannabinoids 50 ng/ml Opiates 300 ng/ml * Results are unconfirmed screening results and should only be used for medical purposes. Performed By: #### L [id number] #### [place] [phone] OPIATE METAB Negative Normal Negative [facility] Comment on above: Performed By: #### L [id number] #### [place] [phone] ED Provider Noteson 07-22-20 19 ED Provider Notes Encounter Department : [facility] ED Provider Notes by Eric Landrum MD at 07/22/2019 9:13 AM Author: KAELA Plazaervice: Emergency MedicineAuthor Type: ED Physician Filed: 07/22/2019 3:37 PMDate of Service: 07/22/2019 9:13 AMStatus: Signed Ore Crushing Dust Collector: Eric Landrum MD (ED Physician) CHIEF COMPLAINT History given by: patient History limited by: nothing Chief Complaint Patient presents with -Suicidal HPI Cory Shelley is a 23 y.o. male who presents in bed 5 with intoxication and self injury. Patient states he has a history of depression. He states he is not on any medications. Patient does admit to feeling depressed. He denies any history of previous self injury. Patient he states that he was drinking throughout the day and evening yesterday. He states that he drank beer and vodka. Patient states that he cut his arm because it was the closest he could get to helping his depression. He cut himself multiple times superficially on the left arm. Patient denies that this was a suicide attempt. However, he states that he tied a belt around his neck earlier today because he wanted to be closer to . He denies history of suicide attempts in the past. He is new to the area. He denies any hallucinations. He denies any drug abuse. Last tetanus is unknown REVIEW OF SYSTEMS CONSTITUTIONAL:Denies fever, denies chills EYES: Denies vision changes ENT: Denies sore throat, denies nasal congestion CARDIOVASCULAR: Denies chest pain, denies palpitations RESPIRATORY: Denies cough, denies shortness of breath GI: Denies nausea, denies vomiting, denies abdominal pain : Denies urinary changes MS:Denies back pain, denies other joint pain SKIN: From self injury NEUROLOGIC: Denies headache, denies focal weakness, denies paresthesia. ENDOCRINE: Denies history of diabetes TRAUMA:Denies recent injury or fall PSYCHIATRIC: Affirms depression ALLERGIC:Denies pruritis, denies angioedema symptoms PAST MEDICAL HISTORY Past Medical History: DiagnosisDate -[place]oxagascu10/22/2019 FAMILY HISTORY No family history on file. SOCIAL HISTORY Social History Socioeconomic History -Marital status:None Spouse name:None -Number of children:None -Years of education:None -Highest education level:None Occupational History -None Social Needs -Financial resource strain:None -Food insecurity: Worry:None Inability:None -Transportation needs: Medical:None Non-medical:None Tobacco Use -Smoking status:Never Smoker -Smokeless tobacco:Never Used Substance and Sexual Activity -Alcohol use:Yes -Drug use:Yes Types:Marijuana -Sexual activity:Yes Lifestyle -Physical activity: Days per week:None Minutes per session:None -Stress:None Relationships -Social connections: Talks on phone:None Gets together:None Attends christianity service:None Active member of club or organization:None Attends meetings of clubs or organizations:None Relationship status:None -Intimate partner violence: Fear of current or ex partner:None Emotionally abused:None Physically abused:None Forced sexual activity:None Other TopicsConcern -None Social History Narrative -None SURGICAL HISTORY History reviewed. No pertinent surgical history. CURRENT MEDICATIONS No outpatient medications have been marked as taking for the 07/22/19 encounter (Hospital Encounter). ALLERGIES No Known Allergies PHYSICAL EXAM VITAL SIGNS: ED Triage Vitals [07/22/19 0820] BP157/76 Temp99.1 ?F (37.3 ?C) Pulse90 Resp16 FeD7001 % Spofls985 lb (81.6 kg) Jimmie Coma Scale Score15 BMI (Calculated)30 Constitutional: Well developed, Well nourished, nontoxic. HENT: Normocephalic, Atraumatic, Bilateral external ears normal, Nose normal. Eyes: Conjunctiva normal, No discharge. No scleral icterus. Neck: Normal range of motion, Trachea midline, No stridor. Cardiovascular: Normal heart rate, Normal rhythm. Heart rate 90s Thorax AND Lungs: Normal breath sounds, No respiratory distress Abdomen: Soft, No tenderness. Skin: Warm, Dry, No rash. Back: No midline tenderness, No CVA tenderness. Extremities: No edema, No cyanosis, No clubbing. Musculoskeletal: Good range of motion in all major joints as observed. Multiple superficial abrasions on the left arm. No active bleeding. Intact pulses, motor, and sensation. Neurologic: Alert AND oriented, No focal deficits noted. GCS 15. Psychiatric: Appears intoxicated. Affirms depression. Vague regarding suicidal ideation RADIOLOGY/PROCEDURES CBC W/DIFF - Abnormal; Notable for the following components: ResultValueRef RangeStatus MCV82.7 (*)85.0 - 99.0 flFinal MCH27.7 (*)28.4 - 33.4 pgFinal All other components within normal limits COMPREHENSIVE METABOLIC PANEL - Abnormal; Notable for the following components: Alkaline [id number] (*)34 - 104 U/LFinal Comment:Please note the new reference range for this test. All other components within normal limits SERUM TOX SCREEN - Abnormal; Notable for the following components: Acetaminophen Level<10 (*)10 - 30 ug/mLFinal Lcicmvf830 (*)<10 mg/dLFinal Salicylate<2.5 (*)3.0 - 20.0 MG/DLFinal All other components within normal limits Narrative: Salicylate Therapeutic Range: 20-25 mg/dL Acetaminophen Therapeutic Range:10.00-30.00 ug/mL DRUGS OF ABUSE URINE - Normal Narrative: Drug Screen Cut-off values: Amphetamines 300 ng/ml Benzodiazepines 200 ng/ml Barbiturates 200 ng/ml Cocaine metabolite 300 ng/ml Cannabinoids 50 ng/ml Opiates 300 ng/ml * Results are unconfirmed screening results and should only be used for medical purposes. EXTRA TUBE-PURPLE EXTRA TUBE-PST EXTRA TUBE-URINE RED/YELLOW SPECKLED EXTRA TUBE-URINE LONGORIA MEDS GIVEN IN ED: Medications diphtheria-acellular pertussis-tetanus (ADACEL) injection 0.5 mL (0.5 mLs Intramuscular Given 07/22/19 09) COURSE AND MEDICAL DECISION MAKING Pertinent Labs AND Imaging studies reviewed. (See chart for details) Consulted with: ANGELINA. Patient observed for several hours in the emergency department until he was clinically sober. Patient evaluated by the sheep farm worker. Patient continues to voice suicidal ideation. Unbeknownst to me, the patient had already been pink slipped by the law enforcement officers who brought him in. Patient appears medically stable at this time and I feel it is safe for him to be transferred for inpatient psychiatric treatment. He has been accepted by our psychiatrist. I signed the COBRA form. Patient was seen by me in conjunction with the resident physician, who participated in the patient's management and care under my direct supervision. New Prescriptions No medications on file FINAL IMPRESSION ICD-10-CM 1.Depression, unspecified depression typeF32.9 2.Suicidal bsgzrwzaH06.851 3.Forearm abrasion, left, initial [id number] 4.Self-inflicted qayazoD49.89 Electronically signed by: ERIC LANDRUM MD, 07/22/2019 Eric Landrum MD 07/22/19 1537 Normal [facility] ED Provider Notes Encounter Department : [facility] ED Provider Notes by Wilbert Valladares DO at 07/22/2019 9:12 AM Author: Rosy Barrazarvice: Emergency MedicineAuthor Type: Resident Filed: 07/22/2019 9:13 AMDate of Service: 07/22/2019 9:12 AMStatus: Signed Ore Crushing Dust Collector: Wlibert Valladares DO (Resident)Cosigner: Eric Landrum MD at 07/22/2019 11:49 AM This patient was seen during a simultaneous interview, physical exam performed and treated in conjunction with the Attending Physician, Eric Landrum MD. Please see their documentation for HPI, ROS, PE, ED workup, MDM, and final disposition. Electronically Signed By: Wilbert Valladares DO, EM1, 07/22/2019 9:12 AM Wilbert Valladares DO Resident 07/22/19 0913 Normal [facility] Progress Noteson 07-22-2019 Progress Notes Encounter Department : [facility] Progress Notes by LAMINE Castro at 07/22/2019 8:00 PM Author: TANNA Castroervice: -Author Type: Mental Health Tech Filed: 07/22/2019 10:09 PMDate of Service: 07/22/2019 8:00 PMStatus: Signed Ore Crushing Dust Collector: LAMINE Castro (Mental Health Tech) Note: [facility] [employer] was not held to night due to attending to new Pt admit and and assisting in 2nd Pt code being called. Individual education and discussion was attempted with pts in rooms 9311 through 0436 see education log for results. Normal [facility] SERUM TOX SCREENon 9 Acetaminophen [Mass/Vol] <10 Abnormal 10-30 [facility] Comment on above: Performed By: #### L [id number] #### [facility] [address] [place] [address] #### [id number] #### [facility] [address] [place] [address] Ethanol [Mass/Vol] 227 mg/dL Abnormal <10 [facility] Comment on above: Performed By: #### L [id number] #### [facility] [address] [place] [address] #### [id number] #### [place] [address] SALICYLATE (GMH/IRS) <2.5 Abnormal 3.0-20.0 [facility] Comment on above: Performed By: #### L [id number] #### [facility] [address] [place] [address]. [place] [id number] [facility] #### [id number] #### [place] [id number] [place] [address] SERUM TOX SCREEN Normal [facility] Comment on above: Result Comment: Sali cylate Therapeutic Range: 20-25 mg/dL Acetaminophen Therapeutic Range:10.00-30.00 ug/mL Performed By: #### L AB17 #### [address] [place] [id number] [facility] #### [id number] #### [place] [id number] [place] [address] Vital Signs Date Time Vital Sign Value Performing Clinician Faci lity 10-01-2024 08:05-0500 Body temperature 98.01 [degF] Donna Albarran MD Work Phone: [facility] 10-01-2024 08:05-0500 Diastolic blood pressure 68 mm[Hg] Donna Albarran MD Work Phone: [facility] 10-01-2024 08:05-0500 Heart rate 97 /min Donna Albarran MD Work Phone: [facility] 10-01-2024 08:05-0500 Respiratory rate 16 /min Donna Albarran MD Work Phone: [facility] 10-01-2024 08:05-0500 SaO2% (BldA) [Mass fraction] 97 % Donna Albarran MD Work Phone: [facility] 10-01-2024 08:05-0500 Systolic blood pressure 123 mm[Hg] Donna Albarran MD Work Phone: [facility] 09-21-2024 13:55-0500 Body height 160 cm Donna Albarran MD Work Phone: [facility] 09-21-2024 13:55-0500 Body mass index (BMI) [Ratio] 30.33 kg/m2 Donna Albarran MD Work Phone: [facility] 09-21-2024 13:55-0500 Body weight 77.66 kg Donna Albarran MD Work Phone: [facility] 08-19-2024 11:26-0500 Body temperature 97.59 [degF] Edouard Peres MD Work Phone: [facility] 08-19-2024 11:26-0500 Diastolic blood pressure 63 mm[Hg] Edouard Peres MD Work Phone: [facility] 08-19-2024 11:26-0500 Heart rate 97 /min Edouard Peres MD Work Phone: [facility] 08-19-2024 11:26-0500 Respiratory rate 16 /min Edouard Peres MD Work Phone: [facility] 08-19-2024 11:26-0500 SaO2% (BldA) [Mass fraction] 98 % Edouard Peres MD Work Phone: [facility] 08-19-2024 11:26-0500 Systolic blood pressure 132 mm[Hg] Edouard Peres MD Work Phone: [facility] 08-18-2024 17:51-0500 Body height 162.6 cm Edouard Peres MD Work Phone: [facility] Encounters Encounter Date Encounter Type Care Provider Facility Start: 01-25-2025 [facility] [place] Start: 12-27-2024 End: 12-27-2024 Patient encounter procedure Nalini RODNEY [facility] Work Phone: Start: 12-27-2024 End: 12-27-2024 ambulatory Alecia Sol [employer] Work Phone: [facility] Work Phone: Start: 12-25-2024 End: 12-25-2024 ambulatory Alecia Sol Facility[place] Start: 12-21-2024 End: 12-21-2024 [facility] [employer] [employer] Work Phone: [facility] Work Phone: Start: 12-21-2024 End: 12-21-2024 Patient encounter procedure Alecia Sol [employer] -Laboratory Work Phone: Start: 12-21-2024 End: 12-21-2024 ambulatory Alecia Sol Facility:[facility] Start: 10-07-2024 End: 10-07-[address] [facility] Start: 09-20-2024 End: 10-01-2024 Evaluation and management of inpatient Donna Albarran MD Work Phone: [facility] Comment on above: Depression with suic idal ideation Start: 09-11-2024 End: 09-11-2024 Emergency department patient visit PHYSICIAN NO [facility] Start: 08-31-2024 End: 09-01-2024 Emergency department patient visit PHYSICIAN NO [facility] Start: 08-18-2024 End: 08-19-2024 Emergency department patient visit Edouard Peres MD Work Phone: [facility] Start: 06-06-2024 End: 06-07-[address] [facility] Procedures Date Procedure Procedure Detail Performing Clinician Start: 09-23-2024 Ecg routine ecg w/le ast 12 lds w/i&r Faith Nesbitt DO Work Phone: Start: 09-22-2024 CBC AND ELECTRONIC DIFF Faith Nesbitt DO Work Phone: Start: 09-22-2024 Complete blood count with white cell differential, automated Faith Nesbitt DO Work Phone: Start: 09-22-2024 Hemoglobin glycosylated a1c Faith Nesbitt DO Work Phone: Start: 09-22-2024 Lipid panel Faith Nesbitt DO Work Phone: Start: 09-21-2024 Drug test def 1-7 classes Shannan Castro FOOD ORDER EXPEDITER-E[employer]IC [employer]SEMBLER Work Phone: Start: 09-21-2024 End: 09-21-2024 Radex hand minimum 3 views Ray Steinberg MD , MPH Work Phone: Start: 09-21-2024 PROCEDURE - LACERATI ON REPAIR Ray Steinberg MD, MPH Work Phone: Start: 09-21-2024 End: 09-21-2024 Ct head/brain w/o contrast material Darrell Aldana MD Work Phone: Start: 09-21-2024 EXTRA MICRO Nancy De La Fuente MD Work Phone: Start: 09-21-2024 EXTRA TUBES Nancy De La Fuente MD Work Phone: Start: 09-21-2024 Drug tst prsmv instr mnt chem analyzers pr date Darrell Aldana MD Work Phone: Start: 08-19-2024 ALCOHOL (ETHANOL),BLOOD Sil Granados MD Work Phone: Start: 08-18-2024 Bilirubin direct Selin Gomez MD Work Phone: Start: 08-18-2024 GOLD TOP TUBE Selin barros MD Work Phone: Start: 08-18-2024 LAVENDER TOP TUBE Selin Gomez MD Work Phone: Start: 08-18-2024 LT BLUE TOP TUBE Selin Gomez MD Work Phone: Start: 08-18-2024 MINT GREEN TOP TUBE Aleksandar Gomez MD Work Phone: Start: 08-18-2024 DEYA sosa MD Work Phone: Start: 07-23-2019 Lipid panel Comment on above: Result Comment: ATP III Classification of LDL, Total and HDL Cholesterol (mg/dL) LDL Cholesterol: <100 Optimal 100-129 Near optimal/above optimal 130-159 Borderline high 160-189 High >=190 Very high Total Cholesterol: <200 Desirable 200-239 Borderline high >=240 High HDL Cholesterol: <40 Low >=60 High Performed By: #### L AB17 #### [facility] [place] [id number] [facility] #### [id number] #### [facility] [place] [address] [place] [address] Plan of Treatment Date Care Activity Detail Author Start: 10-03-2024 End: 10-03-2024 Patient encounter procedure 10/03/2024 10:00 AM EST Office Visit [facility] [address] [place] [id number] Oumou Mcdonald, FOOD ORDER EXPEDITER-ELECTRIC RAZOR ASSEMBLER [address] [place] [address] [facility] Start: 04-01-2024 COVID-19 VACCINE ( season) COVID-19 VACCINE ( season) [facility] Start: 04-01-2024 Influenza vaccination INFLUENZA VACCINE (#1) [facility] Start: 12-14-2014 Hepatitis B vaccination HEP B VACCINE (1 of 3 - 19+ 3-dose series) [facility] Start: 12-14-2014 PNEUMOCOCCAL VACCINE SERIES (1 of 2 - PCV) PNEUMOCOCCAL VACCINE SERIES (1 of 2 - PCV) [facility] Start: 12-14-2014 Third diphtheria, tetanus and acellular pertussis (DTaP) vaccination TDAP (ADULT) [facility] Start: 12-14-2010 HIV screening HIV SCREENING DISCUSSION [facility] Start: 1995 Hepatitis C screening HEPATITIS C VIRUS SCREENING [facility] Start: 1995 Tetanus vaccination TETANUS [facility] Standard ECG ECG ECG Routine 09/23/2024 8:34 PM EST [facility] Immunizations Immunization Date Immunization Notes Care Provider Kishore vaughn NEGATED: Highlighted row has not occurred!09-21-2024 tetanus and diphtheria toxoids, adsorbed, preservative free, for adult use (5 Lf of tetanus toxoid and 2 Lf of diphtheria toxoid) Donna Albarran MD Work Phone: [facility] Comment on above: Deferred: Patient Re fused Payers Date Payer Category Payer Unknown 2024 Self-pay 2024 Medicaid MEDICAID [id number] 2024 Unknown [id number] 2024 Unknown [id number] 1995 Unknown [id number] 1995 Unknown [id number] 1995 Unknown [id number] 1995 Unknown [id number] 1995 Unknown [id number] 1995 Unknown [id number] Medicaid [id number] Unknown [id number] Unknown [id number] Unknown [id number] Unknown [id number] Social History Date Type Detail Facility Tobacco smoking stat [facility] Tobacco smoking consumption unknown [facility] Start: 1995 Sex assigned at Not on file [facility] Start: 09-20-2024 End: 09-22-2024 Gender identity Not on file [facility] Start: 09-20-2024 Tobacco smoking status RIIS Smokes tobacco daily [facility] History of tobacco use Cigarette Smoker O [facility] Start: 09-20-2024 Tobacco use and exposure User of smokeless tobacco [facility] Start: 09-20-2024 End: 09-22-2024 History of Social function [facility] Do you belong to any clubs or organizations such as zoroastrian groups, unions, fraternal or athletic groups, or school groups? No [facility] Are you now , , , , never or living with a partner? Never [facility] How often to you hav e a drink containing alcohol? Monthly or less [facility] How many standard dr inks containing alcohol do you have on a typical day? 7 to 9 [facility] How often do you hav e 6 or more drinks on 1 occasion? Monthly [facility] How hard is it for y ou to pay for the very basics like food, housing, medical care, and heating Somewhat hard [facility] Do you feel stress - tense, restless, nervous, or anxious, or unable to sleep at night because your mind is troubled all the time - these days [OSQ] To some extent [facility] Within the past 12 months, did you worry that your food would run out before you got money to buy more? Yes [facility] Start: 08-18-2024 Sex Male (finding) [facility] Start: 1995 Sex Assigned At Male [facility] Functional Status Date Assessment Result Facility 09-22-2024 Total score [AUDIT-C] 6 09/22/19 9:00 AM Kelley Brantley LSW [facility] 09-21-2024 Are you blind, or do you have serious difficulty seeing, even when wearing glasses No 09/21/2024 2:00 PM Justina Galindo, ANNIE No [facility] 09-21-2024 Do you have serious difficulty walking or climbing stairs No 09/21/2024 2:00 PM Justina Galindo, ANNIE No [facility] 09-21-2024 Do you have difficul ty dressing or bathing No 09/21/2024 2:00 PM Justina Galindo, ANNIE No [facility] 09-21-2024 Because of a physica l, mental, or emotional condition, do you have difficulty doing errands alone such as visiting a physician's office or shopping No 09/21/2024 2:00 PM Justina Galindo, ANNIE No [facility] Mental Status Date Assessment Result Facility 09-21-2024 Because of a physica l, mental, or emotional condition, do you have serious difficulty concentrating, remembering, or making decisions Yes 09/21/2024 2:00 PM Justina Galindo, ANNIE Yes [facility] Clinical Notes 08-18-2024 to 12-27-2024 Note Date & Type Note Facility 12-27-2024 Evaluation note Diagnosis Onset Date Resolution Abdominal pain acute December 27, 2024 10:07am [facility] Work Phone: [phone]) 960-617403-03-2025 History of Present illness Narrative* SHARON Xiao - 10/01/2024 3:51 PM EST Social Work Discharge Note Chairman And Ceo met with the treatment team including attending and reviewed patient's chart on 10/01/24. Patient's discharge was confirmed. Members of Team Present: Physician, Chairman And Ceo, and Resident Discharge Plan: Pt will discharge Homeless, and will be transported by Cab/ Lyft. [facility] outpatient providers, [facility] for [facility]G. Fax confirmation ofreceipt obtained. Internal referrals can access AVS through [facility]. See AVS for further aftercare details. Safety: Pt voiced no safety or discharge concerns to junior technical writer. Patient completed safety plan and placed copy in AVS. Spoke with collateral and ensure readiness for discharge. Caring Contacts: Declined Advanced directives: has NO advanced directive - not interested in additional information Substance Abuse Issues / referrals: Patient was provided with resources for substance abuse treatment in AVS. Patient declined referrals to substance use treatment. * Guillermo Lofton RPH - 10/01/2024 1:56 PM EST Images from the original note were not included. [facility] Note: Non-Verbal Med Rec [facility] received the following discharge prescription(s): Total cost is $0. I have reviewed the Discharge Rx Reconciliation Report. The discharge prescription(s) will be delivered to the patient on 10/01/2024. Guillermo Lofton RPH Specialty ([facility]) [phone] [facility] [phone] [facility] Bedside Delivery [phone] [facility] [phone] [facility] Delivery [phone] [facility] [phone] [facility] [phone] [employer] [phone] [place] [phone] * SHARON Xiao - 10/01/2024 12:19 PM EST Social Work Progress note: Met with patient to review progress toward treatment goals. Patient approached the team and appeared to be in a good mood. He stated I'm ready to go and explained that he would go to the long-term upon discharge. Patient provided verbal permission for TW to obtain collateral from his grandfather Ray Levine [phone]. TW spoke with Ray who had no safety concerns for this patient. Called [facility] to schedule follow-up for this patient. Follow-up is on 10/11 at 1pm. SW met with team to review discharge planning. Treatment team is continuing to monitor and adjust medications. Pt is working on making progress regarding safe behaviors and developing plan for aftercare upon discharge from hospital. Members of Team Present: Physician, Chairman And Ceo, and Resident Legal Status: Voluntary Collateral: None given Aftercare plans post discharge [facility] Living Arrangement post discharge: homeless AVS Status: Appointments in AVS: yes Safety Plan in AVS: yes SW Discharge Instructions complete: yes SHARON Xiao * Tony Marquez MD - 09/30/2024 12:59 PM EST [facility] RESIDENT PHYSICIAN WEEKEND PROGRESS NOTE AND TREATMENT PLAN UPDATE Patient of Alonso iDxon MD, seen today by Tony Marquez MD in [facility]. I received check out information from the primary team, reviewed the patient's chart, and received report from nursing staff. SUBJECTIVE Interval History: Slept 7 hours overnight. Additional events over the last 24 hours: VSS, medication adherent, no PRNs outside of nicotine gum. Chief complaint: I'm good Today, patient is reporting mood is good. Slept well. Safety concerns: denies. Psychotic symptomsdenies. Medication side effects: denies. He denies physical issues, didn't want to chat much. OBJECTIVE Vitals, recent results, and current medications have been reviewed by me on 09/30/24 Constitutional/Appearance: fair hygiene/grooming. No acute distress. Attention/concentration: alert, no eye contact, remains lying face down on bed Orientation: oriented to self, location, and situation Motor Activity: normokinetic and neither restless nor sedated Speech: fluent Citizen [place], average rate and rhythm, appropriate volume, monotonous Mood: good Affect: congruent, calm, and neutral; blunted; little emotional reactivity Thought Process: linear and goal-oriented Associations: intact Suicidal Ideation: denied by the patient Homicidal Ideation: denied by the patient Delusions: none evident Hallucination: denies hearing voices, denies seeing visions, and not apparently responding to internal stimuli Insight/Judgment: fair insight, fair judgment Impulse control: intact ASSESSMENT Principal Problem: Depression with suicidal ideation Level of Observation, Suicide Risk Assessment and Safety Planning: The patient DOES NOT have medical equipment or a medical bed. Current risk of suicide is low as evidenced by recent progress and current mental status examination Current level of inpatient precautions: Violent, unpredictable behaviors Safety plan will be completed prior to discharge. PLAN Plan of Care Discussed with Patient and the following Action was reviewed: Continue plan of care as previously discussed and documented Informed consent: Discussed informed consent for all medication with the patient/guardian. The following elements were reviewed: the recommended medication name, frequency, route, and purpose; that dosage and route may be changed based on changes to physical or psychological status; risks and benefits of each medication, including common side effects and applicable long-term risks; the right to refuse medication, unless in an emergency, under a court order, or under guardianship; the anticipated results of not receiving the medication and all alternatives to the medication. The patient/guardian agreed to the proposed treatment. Patient's Response: Verbalizes agreement with plan or modifications to plan. Continued Stay Criteria (select all that apply) Patient is progressing in treatment but has not yet acheived a base line Complexity. Obesity, class 1 Body mass index is 30.33 kg/m . - Follow with PCP for dietary and lifestyle modifications. Any conditions listed below are present on admission unless otherwise specified. . I re-certify that this inpatient psychiatric hospital admission is medically necessary for diagnostic study and/or active treatment, which could reasonably be expected to improve the patient's condition. Tony Marquez MD * Lilian Thomason MD - 09/29/2024 8:05 AM [facility] PROGRESS NOTE AND TREATMENT PLAN UPDATE Patient of Alonso Dixon MD, seen today by Lilian Thomason MD in [facility] and staffed with Dr. Greer. I received check out information from the primary team, reviewed the patient's chart, and received report from nursing staff. SUBJECTIVE Interval History: Slept 8 hours overnight. Additional events over the last 24 hours: VSS, medication adherent, no PRNs. Chief complaint: trying to get some rest and chill to make the time go by faster Today, patient is reporting mood is alright. Slept well. Safety concerns: denies. Psychotic symptoms denies. Medication side effects: denies. OBJECTIVE Vitals, recent results, and current medications have been reviewed by me on 09/29/24 Constitutional/Appearance: fair hygiene/grooming. No acute distress. Attention/concentration: alert, no eye contact, remains lying face down on bed Orientation: oriented to self, location, and situation Motor Activity: normokinetic and neither restless nor sedated Speech: fluent [place], average rate and rhythm, appropriate volume, monotonous Mood: alright Affect: congruent, calm, and neutral; blunted; little emotional reactivity Thought Process: linear and goal-oriented Associations: intact Suicidal Ideation: denied by the patient Homicidal Ideation: denied by the patient Delusions: none evident Hallucination: denies hearing voices, denies seeing visions, and not apparently responding to internal stimuli Insight/Judgment: fair insight, fair judgment Impulse control: intact ASSESSMENT Principal Problem: Depression with suicidal ideation Level of Observation, Suicide Risk Assessment and Safety Planning: The patient DOES NOT have medical equipment or a medical bed. Current risk of suicide is low as evidenced by recent progress and current mental status examination Current level of inpatient precautions: Violent, unpredictable behaviors Safety plan will be completed prior to discharge. PLAN Plan of Care Discussed with Patient and the following Action was reviewed: Continue plan of care as previously discussed and documented Informed consent: Discussed informed consent for all medication with the patient/guardian. The following elements were reviewed: the recommended medication name, frequency, route, and purpose; that dosage and route may be changed based on changes to physical or psychological status; risks and benefits of each medication, including common side effects and applicable long-term risks; the right to refuse medication, unless in an emergency, under a court order, or under guardianship; the anticipated results of not receiving the medication and all alternatives to the medication. The patient/guardian agreed to the proposed treatment. Patient's Response: Verbalizes agreement with plan or modifications to plan. Continued Stay Criteria (select all that apply) Patient is progressing in treatment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
[2025-01-25] MEDS: Dicyclomine 10 MG Capsule 20 MG PO (07:50)
[2025-01-25] MEDS: Mag Hydrox/Al Hydrox/Simeth 30 ML UDC PO (07:50)
[2025-01-25 08:01] LABS: Absolute Lymphocyte Count 2.12 X10^3/uL (0.83-4.51); Absolute Neutrophil Count 4.5 X10^3/uL (2.0-7.7); Basophil# 0.02 X10^3/uL; Basophil% 0.3 % (0-1); Eosinophil# 0.23 X10^3/uL; Eosinophils% 3.1 % (0-5); Hematocrit 40.4 % (40-54); Hemoglobin 13.6 g/dL (13.0-16.5); Lymphocyte # 2.12 X10^3/ul (0.83-4.51); Lymphocyte % 28.9 % (19-41); Mean Corp Hgb Conc 33.7 g/dL (32-36); Mean Corpuscular Hgb 26.4 pg (27.0-32.0); Mean Corpuscular Volume 78.4 fL (80-94); Mean Platelet Vol. 9.8 fl (6.2-12.0); Monocyte% 6.8 % (0-10); NRBC Flagged by Analyzer 0 % (0-5); Neutrophil # 4.45 X10^3/uL (2.7-7.7); Neutrophil % 60.6 % (47-70); Platelet Count 213 K/mm3 (150-450); RBC Distribution Width SD 37.1 fl (35.1-43.9); Red Blood Count 5.15 M/mm3 (4.6-6.2); White Blood Count 7.3 K/mm3 (4.4-11.0)
[2025-01-25 08:46] LABS: ALB/GLOB Ratio 1.6 RATIO (0.9-2.4); AST(SGOT) 25 U/L (<=37); Alanine Aminotransfer ALT/SGPT 35 U/L (<=46); Albumin, Serum 4.5 g/dL (3.5-5.0); Alkaline Phosphatase 108 U/L (40-129); Anion Gap 12 (5-15); BUN 20 mg/dL (4-19); BUN/Creat Ratio 24.8 RATIO (10-20); Calcium,Total 9.8 mg/dL (7.6-11.0); Carbon Dioxide 23.7 mmol/L (21.0-32.0); Chloride 101 mmol/L (98-108); Creatinine, Serum 0.82 mg/dL (0.70-1.20); EST Glomerular Filtration Rate 122 (>60); Estimated Creatinine Clearance 130.48 ml/min (50-250); Globulin 2.8 g/dL (2.2-4.2); Glucose 95 mg/dL (70-99); Lipase 21 U/L (13-75); Potassium 3.8 mmol/L (3.3-5.1); Protein, Total 7.3 g/dL (5.9-8.4); Sodium Level 137 mmol/L (133-145); Total Bilirubin 0.44 mg/dL (0.00-1.30)
[2025-01-25 08:57] VITALS: BP 124/78; PULSE 64; RESP 14; O2SAT 98
[2025-01-25 09:22] VITALS: BP 129/66; PULSE 78; RESP 14; TEMP 37.1; O2SAT 99
== END 2025-01-25 09:23 | disposition home or self-care (01) ==
PROVIDERS: Emergency Provider Emergency Medicine; PCP Nurse Practitioner Family; Visit Provider Emergency Medicine
DX: R10.9 Unspecified abdominal pain (principal); R19.7 Diarrhea, unspecified; Z87.891 Personal history of nicotine dependence; R14.0 Abdominal distension (gaseous); K21.9 Gastro-esophageal reflux disease without esophagitis; Z79.899 Other long term (current) drug therapy
CPT/HCPCS: 74177; 80053; 83690; 85025; 99283; Q9967; A4216